=== PATIENT | male | born 1955 | race Caucasian/White ===

== ENCOUNTER 2024-02-27 12:01 | Inpatient (IN) ==
--- NOTE | 2024-02-27 12:22 | Emergency Department Note ---
Impression & Plan Acute left lumbar radiculopathy ED Provider Note NAME: JAYLYN BUENO AGE: 68 SEX: M : 1955 ARRIVES VIA: Walk-In INFORMANT: Patient, ED PROVIDER(S): Sravan Leach DO CHIEF COMPLAINT: Back pain HPI: The patient is a 68-year-old male who presented to the emergency department for an evaluation of back pain. The patient has been experiencing back pain for many years. He recently had another problem with his lower back over the course of the last several days. He was seen in our facility 2 days ago for similar complaints. At that time he was treated with pain medication. He had multiple radiographic studies but ultimately was able to be discharged to home. The patient returns today because of worsening symptoms. He is scheduled to follow- up with orthopedic spine but not for several days. He was scheduled to see his family doctor today but he was in too much pain so he came to the emergency department. He denies having any trauma or fever. ROS: See above HPI for pertinent positives & negatives. A total of 10 systems reviewed and were otherwise negative. PAST MEDICAL HISTORY: See Below PAST SURGICAL HISTORY: See Below FAMILY HISTORY: See Below SOCIAL HISTORY: See Below HOME MEDICATIONS: See Below ALLERGIES: See Below VITALS: See Below PHYSICAL EXAMINATION: GENERAL: The patient is awake and alert. The patient is somewhat anxious appearing. He appears uncomfortable. EYES: The conjunctivae are clear. The pupils are round and reactive. EARS, NOSE, MOUTH AND THROAT: The nose is without any evidence of any deformity. NECK: The neck is nontender and supple. RESPIRATORY: Normal respiratory effort is noted there is no evidence of wheezing rhonchi or rales CARDIOVASCULAR: Regular rate and rhythm noted there no murmurs rubs or gallops normal S1 normal S2. GASTROINTESTINAL: The abdomen is soft. Abdomen is nontender. BACK: There is no midline tenderness appreciated. There was tenderness over the left sciatic notch. MUSCULOSKELETAL/EXTREMITIES: There is no evidence of gross deformity full range of motion is noted in the hips and shoulders. SKIN: There is no obvious evidence of any rash. There are no petechiae, pallor or cyanosis noted. NEUROLOGIC: Patient is awake alert and oriented x3 strength is symmetric patellar reflexes are 2+ bilaterally. Achilles tendon reflexes were 1+ bilaterally. Great toe raise was symmetric. MEDICAL DECISION MAKING: The patient is a 68-year-old male who presented to the emergency department for an evaluation of the left leg numbness and back pain. The patient appears to have lumbar radiculopathy. He was diagnosed with lumbar radiculopathy recently in our facility. He was scheduled for a follow-up with orthopedic spine but pain became worse and he came to the emergency department today. He was treated with pain medication in the emergency department. He was feeling much better but on subsequent reevaluation and continued to have worsening pain that I felt warranted an MRI especially given his exam and comorbidities. Ultimately he was found to have some degree of impingement. This could explain the patient's pain. I discussed his condition with the on-call [facility] hospitalist. They have agreed to evaluate the patient in the emergency department for further management and disposition. Triage Nursing notes reviewed. Prior medical records reviewed Vital Signs: reviewed and remarkable for no significant abnormalities Differential diagnosis: Musculoskeletal, disc herniation, fracture, metastatic disease, cord compression, discitis, sciatica, cauda equina, infection, aortic disease, renal colic, gastrointestinal, as well as other pathologies. ER treatment provided: See below Diagnostics interpreted by me: ECG: none Cardiac Monitoring: An order was placed for continuous cardiac monitoring. The monitor shows a rate of 103 bpm with sinus rhythm. Laboratory studies: As stated above and show below. Imaging studies: See below. Radiographic imaging was reviewed by myself Consultation(s): I discussed this case with Dr. Ellison who is on-call for the [facility]ist group. Past Med/Surg History Problem List Hypertension Aneurysm of abdominal aorta (under annual surveillance by PCP) Acute left lumbar radiculopathy (Acute) Groin lump Erectile dysfunction Encounter for pre-operative examination Retention of urine Gross hematuria Elevated PSA Diabetes mellitus NIDDM BPH with obstruction/lower urinary tract symptoms Recurrent left inguinal hernia Smoker GERD (gastroesophageal reflux disease) S/P left inguinal hernia repair (09/20/20) Left Open Recurrent Inguinal Hernia Repair With Mesh Dr. Moy 09-20-2020 Medical History Diabetes mellitus, type 2 BPH (benign prostatic hyperplasia) Hypertension Hyperlipidemia Aneurysm of abdominal aorta (under annual surveillance by PCP) Surgical History History of prostate surgery [facility] TURP (08/27/18): LMA#5 at [facility] H/O colonoscopy Hx of bilateral cataract extraction History of bilateral inguinal hernia repair ~2012 ([facility]) Family History Father Prostate cancer Hypertension Brother Prostate cancer Mother Hypertension Diabetes Sister Diabetes Other No family history of adverse response to anesthesia Social History Smoking Status: Never smoker packs per day: 1.5; Cigarettes Per Day: quit 3 YEARS AGO; Second Hand Exposure: No; Do You Dip or Chew Tobacco: No; Hx Alcohol Use: Yes Alcohol type: beer Hx Substance Use: No Preferred Language: Georgian Communication Ability: Effective 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: No Beliefs That Will Affect Care: None marital status: Current Living Situation: Spouse current occupational status: employed 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 Feels Safe at Home: Yes Assistive Devices: Denture - Upper and Denture - Lower Allergies Allergies Allergy/AdvReac Type Severity Reaction Status Date / Time No Known Allergies Allergy Verified 04/22/23 15:17 Home Meds Home Medications Medication Instructions Recorded Confirmed atorvastatin 40 mg tablet 40 mg PO QAM 08/21/18 02/27/24 lisinopril 5 mg tablet 10 mg PO QAM 08/21/18 02/27/24 finasteride 5 mg tablet 5 mg PO QAM 09/07/20 02/27/24 empagliflozin 25 mg tablet 25 mg PO UD 07/19/22 02/27/24 (Jardiance) metformin 500 mg tablet,extended 1,000 mg PO BID 02/27/24 02/27/24 release 24 hr pantoprazole 20 mg tablet,delayed 20 mg PO BID 02/27/24 02/27/24 release semaglutide 7 mg tablet (Rybelsus) 7 mg PO DAILY 02/27/24 02/27/24 Previous Rx's Medication Instructions Recorded sildenafil 100 mg tablet 100 mg PO DAILY PRN sexual 02/18/24 activity #10 tabs prednisone 20 mg tablet 20 mg PO DAILY 4 days #4 tabs 02/25/24 Results & Data (ED) Vital Signs Vital Signs - 24 hr 02/27/24 12:05 02/27/24 12:17 02/27/24 12:30 Temperature 37 C Temperature Source Oral Pulse Rate 79 71 Pulse Rate [Apical] 74 Pulse Rate from SpO2 Sensor Pulse Rhythm Regular Pulse Rhythm [Apical] Regular Pulse Strength Normal Pulse Strength [Apical] Normal Respiratory Rate 18 22 Respiratory Effort / Characteristics Non-Labored Spontaneous Non-Labored Spontaneous Respiratory Depth Normal Normal Respiratory Pattern Regular Regular Blood Pressure 177/93 H Blood Pressure [Right Arm] 144/87 H Blood Pressure Mean 121 Blood Pressure Mean [Right Arm] 106 Blood Pressure Position Sitting Blood Pressure Position [Right Arm] Lying Pulse Oximetry 98 95 Oxygen Delivery Method Room Air Room Air Sepsis Recent Fever Within 48 Hours No Sepsis New/Unexplained Change in Mental Status No Sepsis Action Taken by Nursing No Action Required 02/27/24 12:30 02/27/24 12:36 02/27/24 13:12 Temperature Temperature Source Pulse Rate 77 Pulse Rate [Apical] Pulse Rate from SpO2 Sensor 77 Pulse Rhythm Pulse Rhythm [Apical] Pulse Strength Pulse Strength [Apical] Respiratory Rate 20 Respiratory Effort / Characteristics Respiratory Depth Respiratory Pattern Blood Pressure 144/87 H 141/72 H Blood Pressure [Right Arm] Blood Pressure Mean 106 104 Blood Pressure Mean [Right Arm] Blood Pressure Position Blood Pressure Position [Right Arm] Pulse Oximetry 95 94 Oxygen Delivery Method Room Air Room Air Sepsis Recent Fever Within 48 Hours Sepsis New/Unexplained Change in Mental Status Sepsis Action Taken by Nursing 02/27/24 13:21 02/27/24 13:30 02/27/24 13:30 Temperature Temperature Source Pulse Rate 74 74 Pulse Rate [Apical] Pulse Rate from SpO2 Sensor 71 74 Pulse Rhythm Pulse Rhythm [Apical] Pulse Strength Pulse Strength [Apical] Respiratory Rate 17 16 Respiratory Effort / Characteristics Respiratory Depth Respiratory Pattern Blood Pressure 135/77 Blood Pressure [Right Arm] Blood Pressure Mean 98 Blood Pressure Mean [Right Arm] Blood Pressure Position Blood Pressure Position [Right Arm] Pulse Oximetry 95 90 Oxygen Delivery Method Sepsis Recent Fever Within 48 Hours Sepsis New/Unexplained Change in Mental Status Sepsis Action Taken by Nursing 02/27/24 13:42 02/27/24 14:57 02/27/24 14:57 Temperature Temperature Source Pulse Rate 69 Pulse Rate [Apical] Pulse Rate from SpO2 Sensor 69 Pulse Rhythm Pulse Rhythm [Apical] Pulse Strength Pulse Strength [Apical] Respiratory Rate 14 Respiratory Effort / Characteristics Respiratory Depth Respiratory Pattern Blood Pressure 152/104 H 152/104 H Blood Pressure [Right Arm] Blood Pressure Mean 110 110 Blood Pressure Mean [Right Arm] Blood Pressure Position Blood Pressure Position [Right Arm] Pulse Oximetry 93 Oxygen Delivery Method Sepsis Recent Fever Within 48 Hours Sepsis New/Unexplained Change in Mental Status Sepsis Action Taken by Nursing 02/27/24 14:57 02/27/24 14:59 02/27/24 15:00 Temperature Temperature Source Pulse Rate 68 Pulse Rate [Apical] 93 H Pulse Rate from SpO2 Sensor 69 Pulse Rhythm Pulse Rhythm [Apical] Regular Pulse Strength Pulse Strength [Apical] Respiratory Rate 16 18 Respiratory Effort / Characteristics Non-Labored Respiratory Depth Normal Respiratory Pattern Blood Pressure 147/82 H Blood Pressure [Right Arm] 152/104 H Blood Pressure Mean 106 Blood Pressure Mean [Right Arm] 120 Blood Pressure Position Blood Pressure Position [Right Arm] Pulse Oximetry 96 93 Oxygen Delivery Method Room Air Sepsis Recent Fever Within 48 Hours Sepsis New/Unexplained Change in Mental Status Sepsis Action Taken by Nursing 02/27/24 15:03 02/27/24 15:21 02/27/24 15:30 Temperature Temperature Source Pulse Rate 90 70 Pulse Rate [Apical] Pulse Rate from SpO2 Sensor 80 70 Pulse Rhythm Pulse Rhythm [Apical] Pulse Strength Pulse Strength [Apical] Respiratory Rate 19 14 Respiratory Effort / Characteristics Respiratory Depth Respiratory Pattern Blood Pressure 138/77 Blood Pressure [Right Arm] Blood Pressure Mean 99 Blood Pressure Mean [Right Arm] Blood Pressure Position Blood Pressure Position [Right Arm] Pulse Oximetry 94 94 Oxygen Delivery Method Sepsis Recent Fever Within 48 Hours Sepsis New/Unexplained Change in Mental Status Sepsis Action Taken by Nursing 02/27/24 15:30 02/27/24 16:00 02/27/24 16:00 Temperature Temperature Source Pulse Rate 70 Pulse Rate [Apical] Pulse Rate from SpO2 Sensor 70 Pulse Rhythm Pulse Rhythm [Apical] Pulse Strength Pulse Strength [Apical] Respiratory Rate 12 Respiratory Effort / Characteristics Respiratory Depth Respiratory Pattern Blood Pressure 134/80 134/80 Blood Pressure [Right Arm] Blood Pressure Mean 110 110 Blood Pressure Mean [Right Arm] Blood Pressure Position Blood Pressure Position [Right Arm] Pulse Oximetry 95 Oxygen Delivery Method Sepsis Recent Fever Within 48 Hours Sepsis New/Unexplained Change in Mental Status Sepsis Action Taken by Nursing 02/27/24 16:00 02/27/24 16:12 02/27/24 16:18 Temperature Temperature Source Pulse Rate 69 76 84 Pulse Rate [Apical] Pulse Rate from SpO2 Sensor 69 76 Pulse Rhythm Pulse Rhythm [Apical] Pulse Strength Pulse Strength [Apical] Respiratory Rate 16 15 Respiratory Effort / Characteristics Respiratory Depth Respiratory Pattern Blood Pressure Blood Pressure [Right Arm] Blood Pressure Mean Blood Pressure Mean [Right Arm] Blood Pressure Position Blood Pressure Position [Right Arm] Pulse Oximetry 95 95 Oxygen Delivery Method Sepsis Recent Fever Within 48 Hours Sepsis New/Unexplained Change in Mental Status Sepsis Action Taken by Nursing 02/27/24 16:24 02/27/24 16:30 02/27/24 16:30 Temperature Temperature Source Pulse Rate 69 Pulse Rate [Apical] 68 Pulse Rate from SpO2 Sensor 70 Pulse Rhythm Pulse Rhythm [Apical] Regular Pulse Strength Pulse Strength [Apical] Normal Respiratory Rate 15 14 Respiratory Effort / Characteristics Non-Labored Spontaneous Respiratory Depth Normal Respiratory Pattern Regular Blood Pressure 132/80 Blood Pressure [Right Arm] 132/80 Blood Pressure Mean 104 Blood Pressure Mean [Right Arm] 97 Blood Pressure Position Blood Pressure Position [Right Arm] Sitting Pulse Oximetry 96 95 Oxygen Delivery Method Room Air Sepsis Recent Fever Within 48 Hours Sepsis New/Unexplained Change in Mental Status Sepsis Action Taken by Nursing 02/27/24 16:30 02/27/24 16:30 02/27/24 16:42 Temperature Temperature Source Pulse Rate 69 85 Pulse Rate [Apical] Pulse Rate from SpO2 Sensor 70 81 Pulse Rhythm Pulse Rhythm [Apical] Pulse Strength Pulse Strength [Apical] Respiratory Rate 11 L 23 Respiratory Effort / Characteristics Respiratory Depth Respiratory Pattern Blood Pressure 132/80 Blood Pressure [Right Arm] Blood Pressure Mean 104 Blood Pressure Mean [Right Arm] Blood Pressure Position Blood Pressure Position [Right Arm] Pulse Oximetry 95 98 Oxygen Delivery Method Sepsis Recent Fever Within 48 Hours Sepsis New/Unexplained Change in Mental Status Sepsis Action Taken by Nursing 02/27/24 16:57 02/27/24 17:00 02/27/24 17:06 Temperature Temperature Source Pulse Rate 73 Pulse Rate [Apical] Pulse Rate from SpO2 Sensor 73 80 Pulse Rhythm Pulse Rhythm [Apical] Pulse Strength Pulse Strength [Apical] Respiratory Rate 14 Respiratory Effort / Characteristics Respiratory Depth Respiratory Pattern Blood Pressure 126/82 Blood Pressure [Right Arm] Blood Pressure Mean 87 Blood Pressure Mean [Right Arm] Blood Pressure Position Blood Pressure Position [Right Arm] Pulse Oximetry 95 95 Oxygen Delivery Method Sepsis Recent Fever Within 48 Hours Sepsis New/Unexplained Change in Mental Status Sepsis Action Taken by Nursing 02/27/24 17:30 02/27/24 17:42 02/27/24 19:00 Temperature Temperature Source Pulse Rate 75 Pulse Rate [Apical] 103 H Pulse Rate from SpO2 Sensor 75 Pulse Rhythm Pulse Rhythm [Apical] Pulse Strength Pulse Strength [Apical] Respiratory Rate 17 18 Respiratory Effort / Characteristics Respiratory Depth Respiratory Pattern Blood Pressure 141/74 H Blood Pressure [Right Arm] 128/72 Blood Pressure Mean 91 Blood Pressure Mean [Right Arm] 90 Blood Pressure Position Blood Pressure Position [Right Arm] Pulse Oximetry 94 95 Oxygen Delivery Method Room Air Sepsis Recent Fever Within 48 Hours Sepsis New/Unexplained Change in Mental Status Sepsis Action Taken by [facility] Medications Current Medication List: was personally reviewed by me Laboratory Data Attestation: I reviewed the patient's lab results. 02/27/24 12:22 02/27/24 12:22 Lab Results 02/27/24 02/27/24 Range/Units 12:22 14:47 WBC 5.53 (4.8-10.8) K/ul RBC 4.60 L (4.70-6.10) M/uL Hgb 11.6 L (14.0-18.0) g/dl Hct 37.6 L (42.0-52.0) % MCV 81.7 (80.0-100.0) fL MCH 25.2 (25.0-34.0) pg MCHC 30.9 L (32.0-36.0) g/dL RDW Std Deviation 49.1 H (36.4-46.3) fL RDW Coeff of Jasmin 16.5 H (11.5-14.5) % Plt Count 304 (130-400) K/uL MPV 9.6 (9.4-12.4) fL Immature Gran % (Auto) 0.2 % Neut % (Auto) 63.0 % Lymph % (Auto) 28.4 % Bates % (Auto) 6.1 % Eos % (Auto) 1.6 % Baso % (Auto) 0.7 % Neut # (Auto) 3.48 (1.40-6.50) K/uL Lymph # (Auto) 1.57 (1.20-3.40) K/uL Bates # (Auto) 0.34 (0.11-0.59) K/uL Eos # (Auto) 0.09 (0.00-0.50) K/uL Baso # (Auto) 0.04 (0.00-0.20) K/uL Immature Gran # (Auto) 0.01 (0.01-0.20) K/uL Sodium 137 (136-145) mmol/L Potassium 3.8 (3.5-5.1) mmol/L Chloride 103 (98-107) mmol/L Carbon Dioxide 27 (21-32) mmol/L Anion Gap 7 (3-11) BUN 13 (6-23) mg/dl Creatinine 1.02 (0.6-1.4) mg/dl Est Cr Clr Drug Dosing 81.7 ml/min eGFR 80.55 BUN/Creatinine Ratio 12.7 (10-20) Glucose 148 H (70-99(Fasting)) mg/dl Calcium 9.3 (8.6-10.3) mg/dl Total Bilirubin 0.4 (0.2-1.0) mg/dl AST 15 (13-39) U/L ALT 13 (7-52) U/L Alkaline Phosphatase 59 (34-104) U/L Total Protein 6.6 (6.0-8.3) gm/dl Albumin 4.3 (3.4-5.0) gm/dl Globulin 2.3 L (2.5-4.0) gm/dl Albumin/Globulin Ratio 1.9 (0.9-2) Lipase 28 (11-82) U/L Urine Color Yellow Urine Appearance Clear (Clear) Urine pH 5.5 (4.5-7.5) Ur Specific [place] 1.008 (1.000-1.030) Urine Protein Negative (Negative) Urine Glucose (UA) 2+ H (Negative) Urine Ketones Negative (Negative) Urine Blood Negative (Negative) Urine Nitrite Negative (Negative) Urine Bilirubin Negative (Negative) Urine Urobilinogen Negative (Negative) Ur Leukocyte Esterase Negative (Negative) Administered Medications Morphine Sulfate (Morphine Sulfate 4 Mg/Ml 1 Ml Carp\Vial) 4 mg IV Q15M PRN PRN Reason: Pain Stop: 03/12/24 12:14 Last Admin: 02/27/24 12:24 Dose: 4 mg Documented By: G Discontinued Medications Dexamethasone Sodium Phosphate (DexamethasonePf 10 Mg/Ml Vial) 10 mg IV NOW ONE Stop: 02/27/24 12:16 Last Admin: 02/27/24 12:25 Dose: 10 mg Documented By: Ondansetron HCl (Ondansetron Inj 2 Mg/Ml 2 Ml Vial) 4 mg IV NOW STA Stop: 02/27/24 12:16 Last Admin: 02/27/24 12:25 Dose: 4 mg Documented By: Imaging Data Attestation: I personally reviewed and interpreted this imaging study as follows: My Impression: Lumbar fine MRI was obtained in the emergency department. My interpretation is no obvious step-off or fracture, final report below. Radiologist's Impression: Lumbar Spine MRI 02/27/24 12:45 MR lumbar spine wo con CLINICAL HISTORY: 68 years-old Male with left sided radicular. Chronic low back pain with left lower extremity radicular symptoms COMPARISON: CT 02/25/2024 TECHNIQUE: Multiplanar, multi sequence MRI of the lumbar spine was performed without intravenous contrast. FINDINGS: Distended urinary bladder is partially imaged. Conus medullaris terminates at T12-L1. No acute fracture, subluxation or bone marrow edema. No epidural or paraspinal fluid collections. There is no dilation of the infrarenal abdominal aorta redemonstrated measuring approximately 4.1 cm. Mild multilevel spondylitic spurring with [id number] facet arthrosis. T12-L1: No central canal or neural foraminal stenosis. L1-L2: No central canal or neural foraminal stenosis. L2-L3: No central canal or neural foraminal stenosis. L3-L4: Mild intervertebral disc space narrowing with disc desiccation and tiny posterior annular disc bulge. Moderate facet arthrosis. Mild bilateral foraminal narrowing, left greater than right. Central canal is patent. L4-L5: Mild intervertebral disc space narrowing with tiny posterior disc bulge. Ligamentum flavum thickening with moderate facet arthrosis and trace facet effusions. Left foraminal/far lateral annular fissure. Central canal is patent. [id number] left foraminal stenosis. Mild right foraminal narrowing. L5-S1: Moderate intervertebral disc space narrowing. Spondylotic spurring with circumferential annular disc bulge/disc osteophyte complex. There is abutment with slight posterior displacement of the left S1 nerve root which is slightly enlarged compared to the right. Moderate narrowing of the left greater than right lateral recesses. Ligamentum flavum thickening with moderate facet arthrosis. Central canal is patent. Mild right with [id number] left foraminal narrowing. IMPRESSION: 1. Discogenic degeneration with facet arthrosis as above, most pronounced at L4- L5 and L5-S1. 2. No acute fracture or bone marrow edema. 3. No significant central canal stenosis. 4. Fusiform aneurysmal dilation of the infrarenal abdominal aorta redemonstrated measuring up to 4.1 cm. ACT 112: Negative or not required by law. The above report was generated using voice recognition software. It may contain grammatical, syntax or spelling errors. Electronically signed by: Mark Mcgregor M.D. 02/27/2024 3:00 PM Discharge Plan Visit Data Chief Complaint: Hip Pain Stated Complaint: LT HIP AND LEG PAIN AND NUMBNESS ED Provider: Sravan Leach Discharge Problem: Acute left lumbar radiculopathy Patient Disposition: Being Evaluated by Hospitalist Forms Stand Alone Forms: [facility] Prescriptions Prescriptions: No Action sildenafil 100 mg tablet 100 mg PO DAILY PRN (Reason: sexual activity) Qty: 10 6RF Rx Instructions: Administer 1 hour prior to activity on an empty stomach atorvastatin 40 mg Tablet 40 mg PO QAM lisinopril 5 mg Tablet 10 mg PO QAM finasteride 5 mg tablet 5 mg PO QAM Jardiance 25 mg Tablet 25 mg PO UD Rx Instructions: 25 mg po qam. last filled in january for 30 day supply. Per pharmacist, they think rybelsus replaced it but not sure. prednisone 20 mg tablet 20 mg PO DAILY 4 Days Qty: 4 0RF pantoprazole 20 mg tablet,delayed release (DR/EC) 20 mg PO BID Rybelsus 7 mg tablet 7 mg PO DAILY metformin 500 mg tablet extended release 24 hr 1,000 mg PO BID Referrals Referrals: Rabia Mcneil DO [Primary Care Provider] -
[2024-02-27] MEDS: MoRPHine SULFATE 4 MG/ML 1 ML CARP\\VIAL IV PRN (12:24)
[2024-02-27] MEDS: ONDANSETRON INJ 2 MG/ML 2 ML VIAL IV STA (12:25)
[2024-02-27] MEDS: dexAMETHasone**PF** 10 MG/ML VIAL IV ONE (12:25)
[2024-02-27 12:55] LABS: Basophils # (auto) 0.04 K/uL (0.00-0.20); Basophils % (auto) 0.7 %; Eosinophils # (auto) 0.09 K/uL (0.00-0.50); Eosinophils % (auto) 1.6 %; Hematocrit (blood only) 37.6 % (42.0-52.0); Hemoglobin 11.6 g/dl (14.0-18.0); Immature Granulocytes # (auto) 0.01 K/uL (0.01-0.20); Immature Granulocytes % (auto) 0.2 %; Lymphocytes # (auto) 1.57 K/uL (1.20-3.40); Lymphocytes % (auto) 28.4 %; Mean Corpuscular Hemoglobin 25.2 pg (25.0-34.0); Mean Corpuscular Hgb Conc 30.9 g/dL (32.0-36.0); Mean Corpuscular Volume 81.7 fL (80.0-100.0); Mean Platelet Volume 9.6 fL (9.4-12.4); Monocytes # (auto) 0.34 K/uL (0.11-0.59); Monocytes % (auto) 6.1 %; Neutrophils # (auto) 3.48 K/uL (1.40-6.50); Platelet Count 304 K/uL (130-400); RDW Coefficient of Variation 16.5 % (11.5-14.5); RDW Standard Deviation 49.1 fL (36.4-46.3); White Blood Count 5.53 K/ul (4.8-10.8)
[2024-02-27 13:08] LABS: Albumin Globulin Ratio 1.9 (0.9-2); Albumin Level 4.3 gm/dl (3.4-5.0); BUN Creatinine Ratio 12.7 (10-20); Bilirubin,Total 0.4 mg/dl (0.2-1.0); Calcium 9.3 mg/dl (8.6-10.3); Creatinine Clr Calc Pharmacy 81.7 ml/min; Globulin 2.3 gm/dl (2.5-4.0); Potassium 3.8 mmol/L (3.5-5.1); Total Protein 6.6 gm/dl (6.0-8.3)
[2024-02-27 15:12] LABS: Appearance Urine Clear (Clear); Bilirubin Urine Negative (Negative); Blood Urine Negative (Negative); Color Urine Yellow; Glucose Urine UA 2+ (Negative); Ketones Urine Negative (Negative); Leukocyte Esterase Urine Negative (Negative); Nitrite Urine Negative (Negative); Protein Urine Negative (Negative); Specific Gravity Urine 1.008 (1.000-1.030); Urobilinogen Urine Negative (Negative); pH Urine 5.5 (4.5-7.5)
--- NOTE | 2024-02-27 15:31 | Magnetic Resonance Report ---
MR lumbar spine wo con CLINICAL HISTORY: 68 years-old Male with left sided radicular. Chronic low back pain with left lower extremity radicular symptoms COMPARISON: CT 02/25/2024 TECHNIQUE: Multiplanar, multi sequence MRI of the lumbar spine was performed without intravenous cont rast. FINDINGS: Distended urinary bladder is partially imaged. Conus medullaris terminates at T12-L1. No ac [place] fracture, subluxation or bone marrow edema. No epidural or paraspinal fluid collections. There is no dilation of the infrarenal abdominal aorta redemonstrated measuring approximately 4.1 cm. Mild mu ltilevel spondylitic spurring with wpcr-[id number]-iksxoezt facet arthrosis. T12-L1: No central canal or neural foraminal stenosis. L1-L2: No central canal or neural foraminal stenosis. L2-L3: No central canal or neural foraminal stenosis. L3-L4: Mild intervertebral disc space narrowing with disc desiccation and tiny posterior annular dis c bulge. Moderate facet arthrosis. Mild bilateral foraminal narrowing, left greater than right. Central canal is patent. L4-L5: Mild intervertebral disc space narrowing with tiny posterior disc bulge. Ligamentum flavum th ickening with moderate facet arthrosis and trace facet effusions. Left foraminal/far lateral annular fissure. Central canal is patent. [id number] left foraminal stenosis. Mild right foraminal narr owing. L5-S1: Moderate intervertebral disc space narrowing. Spondylotic spurring with circumferential annul ar disc bulge/disc osteophyte complex. There is abutment with slight posterior displacement of the le ft S1 nerve root which is slightly enlarged compared to the right. Moderate narrowing of the left gre ater than right lateral recesses. Ligamentum flavum thickening with moderate facet arthrosis. Central canal is patent. Mild right with newx-ga-ljbrsgyy left foraminal narrowing. IMPRESSION: 1. Discogenic degeneration with facet arthrosis as above, most pronounced at L4-L5 and L5-S1. 2. No acute fracture or bone marrow edema. 3. No significant central canal stenosis. 4. Fusiform aneurysmal dilation of the infrarenal abdominal aorta redemonstrated measuring up to 4.1 cm. ACT 112: Negative or not required by law. The above report was generated using voice recognition software. It may contain grammatical, syntax o r spelling errors. Electronically signed by: Mark Mcgregor M.D. 02/27/2024 3:00 PM
--- NOTE | 2024-02-27 16:22 | History & Physical Report ---
Date of Service February 27, 2024 Assessment & Plan (1) Acute left lumbar radiculopathy: Plan: Ike is a 68-year-old male with PMH of GERD, BPH, diabetes mellitus, urinary retention, and lumbar radiculopathy. He presented on 02/26 for left hip pain with radiation down the leg. Patient denies back pain or saddle anesthesia on admission. No changes in urinary or bowel habits or urinary incontinence. Patient originally presented to the ED 2 days ago on 02/24, and felt better after receiving steroids and tried to go home. Despite taking prednisone 20 mg p.o. BID after ED visit, his symptoms have persisted. No leukocytosis; afebrile Lumbar spine MRI on arrival revealed discogenic degeneration most prominent at L4-L5, and L5-S1 ? Impingement on left side Decadron 10 mg IV x 1 in the ED He does report this helped significantly in the ED Pain control with acetaminophen and oxycodone p.o. as needed Instead of starting on prednisone on the morning of 02/27, will opt to continue Decadron 6 mg IV QAM for now No improvement with prednisone 20 mg p.o. outpatient on 02/24 Will defer orthospine consult at this time as imaging reveals that it is likely nonoperative PT/OT evaluations appreciated Fall precautions (2) Diabetes mellitus: Plan: Last A1c at 7.6% on 09/11/2020 Loose SSI for now Lantus to be added pending a.m. A1c T2DM diet BSG ACHS Adjust regimen as needed Pharmacy glycemic management consult appreciated in the setting of high-dose steroid use AM A1c (3) Aneurysm of abdominal aorta: Plan: Lumbar spine MRI redemonstrated infrarenal abdominal aorta at approximately 4.1 cm Noted on imaging as far back as 2019 Continue regular surveillance (4) Hypertension: Plan: Continue lisinopril Plan Disposition: Admit to [facility] DNR/DNI T2DM diet VTE PPx: Lovenox 40 mg SQ q24h History of Present Illness Chief Complaint: Right hip pain Primary Care Provider: Rabia Mcneil DO Ike is a 68-year-old male with PMH of GERD, BPH, diabetes mellitus, urinary retention, and lumbar radiculopathy. He presented on 02/26 for left hip pain wi th radiation down the leg. Patient denies back pain or saddle anesthesia on admission. No changes in urinary or bowel habits or urinary incontinence. Patient originally presented to the ED 2 days ago on 02/24, and felt better after receiving steroids and tried to go home. Despite taking prednisone 20 mg p.o. BID after ED visit, his symptoms have persisted. Originally, he developed left hip pain around 6 to 7 days ago. This was potentially exacerbated when he took down his Evens lights 10 days ago. Patient did not take his regular morning medicine today. Only recent change was that he was taken off Jardiance at the beginning of February, started on Rybelsus. He describes his left hip pain as a "throbbing" pain that shoots down his leg. His left calf is so sore from the throbbing that he feels like there is a constant "charley horse". He rates the pain 12/10 at its worst, and 6/10 at present after receiving pain medicine in the ED. No prior history of injuries to his left hip or leg. No hardware in the left leg. No history of blood clots in the left leg. Patient is a former tobacco cigarette smoker but quit 5 years ago; smoked for 50 years; 3 PPD. He also reports that he drinks 2-3 beers per day, but has not had any alcohol in the past 3 days. No history of alcohol withdrawal. The pain is not worse when he bears weight on it. Patient is hypertensive at 152/104 at time of admission; vitals otherwise stable. ED course: Decadron 10 mg IV Zofran 4 mg IV Morphine 4 mg IV ROS: Patient endorses pain in left hip/calf/foot, numbness/tingling in left calf and foot, and swelling in calf. Patient denies fever, chills, night-sweats, headache, chest pain, SOB, abdominal pain, N/V/D, urinary incontinence, changes in urinary/bowel habits, blood in the urine or stool, lower back pain, or saddle anesthesia. Allergies Allergy/AdvReac Type Severity Reaction Status Date / Time No Known Allergies Allergy Verified 04/22/23 15:17 Home Medications Medication Instructions Recorded Confirmed Type atorvastatin 40 mg tablet 40 mg PO QAM 08/21/18 02/27/24 History lisinopril 5 mg tablet 10 mg PO QAM 08/21/18 02/27/24 History finasteride 5 mg tablet 5 mg PO QAM 09/07/20 02/27/24 History empagliflozin 25 mg tablet 25 mg PO UD 07/19/22 02/27/24 History (Jardiance) sildenafil 100 mg tablet 100 mg PO DAILY PRN sexual 02/18/24 02/27/24 Rx activity #10 tabs prednisone 20 mg tablet 20 mg PO DAILY 4 days #4 tabs 02/25/24 02/27/24 Rx metformin 500 mg tablet,extended 1,000 mg PO BID 02/27/24 02/27/24 History release 24 hr pantoprazole 20 mg tablet,delayed 20 mg PO BID 02/27/24 02/27/24 History release semaglutide 7 mg tablet (Rybelsus) 7 mg PO DAILY 02/27/24 02/27/24 History Past Med/Surg History Problem List Hypertension Aneurysm of abdominal aorta (under annual surveillance by PCP) Acute left lumbar radiculopathy (Acute) Groin lump Erectile dysfunction Encounter for pre-operative examination Retention of urine Gross hematuria Elevated PSA Diabetes mellitus NIDDM BPH with obstruction/lower urinary tract symptoms Recurrent left inguinal hernia Smoker GERD (gastroesophageal reflux disease) S/P left inguinal hernia repair (09/20/20) Left Open Recurrent Inguinal Hernia Repair With Mesh Dr. Moy 09-20-2020 Medical History Diabetes mellitus, type 2 BPH (benign prostatic hyperplasia) Hypertension Hyperlipidemia Aneurysm of abdominal aorta (under annual surveillance by PCP) Surgical History History of prostate surgery [facility] TURP (08/27/18): LMA#5 at [facility] H/O colonoscopy Hx of bilateral cataract extraction History of bilateral inguinal hernia repair ~2012 ([facility] [place]) Family History Father Prostate cancer Hypertension Brother Prostate cancer Mother Hypertension Diabetes Sister Diabetes Other No family history of adverse response to anesthesia Social History Smoking Status: Never smoker packs per day: 1.5; Cigarettes Per Day: quit 3 YEARS AGO; Second Hand Exposure: No; Do You Dip or Chew Tobacco: No; Hx Alcohol Use: Yes Alcohol type: beer Hx Substance Use: No Preferred Language: Syriac Communication Ability: Effective Marketing Clerk Required: No Beliefs That Will Affect Care: None marital status: Current Living Situation: Spouse current occupational status: employed 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 Feels Safe at Home: Yes Assistive Devices: Denture - Upper and Denture - Lower Review of Systems Review of Systems: See HPI above Physical Exam Physical Exam: General: Mild distress secondary to left hip pain; pleasant affect; non-toxic appearing; well-nourished; cooperative; SpO2 95% on RA HEENT: normocephalic, atraumatic; no scleral icterus; PERRLA; vision and hearing grossly intact Neck: supple; no lymphadenopathy; trachea midline Skin: warm, dry without signs of tenting; no cyanosis; no rashes, bruising, lesions, or erythema noted CV: chest wall NTP; RRR; S1/S2 normal; no murmurs/rubs/gallops; pulses intact and symmetric at radial, DP, and PT Lungs: no acute respiratory distress; symmetrical chest wall expansion; clear breath sounds across all lung mariee w/o adventitious sounds; no wheezing ABD: Soft, NTP; BS present; no rebound/guarding; no distention MSK: no tics or fasciculations LEs: Patient demonstrates ability wiggle toes, plantarflex, and dorsiflex bilaterally; positive left-sided straight leg raise; left hip is mildly TTP; no rashes or bruising appreciated on the left hip or leg; the left calf is only slightly more swollen than the right and is not erythematous; patient's feet are neurovascularly intact assessed at DP and PT; ? Patient's pulse may be slightly weaker in the left DP when compared to the right; extremity is not cold to touch Neuro: A&Ox3; normal mood and affect; fluent speech; no focal deficits; sensation intact and symmetric in lower EXTR bilaterally assessed via light touch Results & Data Results & Data Vital Signs (Past 12 Hours) Vital Signs Temp Pulse Pulse Resp BP BP Pulse Ox 02/27/24 14:59 93 H 18 152/104 H 93 02/27/24 12:36 77 20 144/87 H 94 02/27/24 12:30 95 02/27/24 12:30 74 22 144/87 H 95 02/27/24 12:17 71 02/27/24 12:05 37 C 79 18 177/93 H 98 O2 Del Method 02/27/24 14:59 Room Air 02/27/24 12:36 Room Air 02/27/24 12:30 Room Air 02/27/24 12:30 Room Air 02/27/24 12:17 02/27/24 12:05 Room Air Laboratory Results Abnormal lab results 02/27/24 02/27/24 Range/Units 12:22 14:47 RBC 4.60 L (4.70-6.10) M/uL Hgb 11.6 L (14.0-18.0) g/dl Hct 37.6 L (42.0-52.0) % MCHC 30.9 L (32.0-36.0) g/dL RDW Std Deviation 49.1 H (36.4-46.3) fL RDW Coeff of Jasmin 16.5 H (11.5-14.5) % Glucose 148 H (70-99(Fasting)) mg/dl Globulin 2.3 L (2.5-4.0) gm/dl Urine Glucose (UA) 2+ H (Negative) Diagnostic Findings Lumbar Spine MRI 02/27/24 12:45 MR lumbar spine wo con CLINICAL HISTORY: 68 years-old Male with left sided radicular. Chronic low back pain with left lower extremity radicular symptoms COMPARISON: CT 02/25/2024 TECHNIQUE: Multiplanar, multi sequence MRI of the lumbar spine was performed without intravenous contrast. FINDINGS: Distended urinary bladder is partially imaged. Conus medullaris terminates at T12-L1. No acute fracture, subluxation or bone marrow edema. No epidural or paraspinal fluid collections. There is no dilation of the infrarenal abdominal aorta redemonstrated measuring approximately 4.1 cm. Mild multilevel spondylitic spurring with [id number] facet arthrosis. T12-L1: No central canal or neural foraminal stenosis. L1-L2: No central canal or neural foraminal stenosis. L2-L3: No central canal or neural foraminal stenosis. L3-L4: Mild intervertebral disc space narrowing with disc desiccation and tiny posterior annular disc bulge. Moderate facet arthrosis. Mild bilateral foraminal narrowing, left greater than right. Central canal is patent. L4-L5: Mild intervertebral disc space narrowing with tiny posterior disc bulge. Ligamentum flavum thickening with moderate facet arthrosis and trace facet effusions. Left foraminal/far lateral annular fissure. Central canal is patent. [id number] left foraminal stenosis. Mild right foraminal narrowing. L5-S1: Moderate intervertebral disc space narrowing. Spondylotic spurring with circumferential annular disc bulge/disc osteophyte complex. There is abutment with slight posterior displacement of the left S1 nerve root which is slightly enlarged compared to the right. Moderate narrowing of the left greater than right lateral recesses. Ligamentum flavum thickening with moderate facet arthrosis. Central canal is patent. Mild right with [id number] left foraminal narrowing. IMPRESSION: 1. Discogenic degeneration with facet arthrosis as above, most pronounced at L4- L5 and L5-S1. 2. No acute fracture or bone marrow edema. 3. No significant central canal stenosis. 4. Fusiform aneurysmal dilation of the infrarenal abdominal aorta redemonstrated measuring up to 4.1 cm. ACT 112: Negative or not required by law. The above report was generated using voice recognition software. It may contain grammatical, syntax or spelling errors. Electronically signed by: Mark Mcgregor M.D. 02/27/2024 3:00 PM Code Status & VTE Plan Code Status DNR/DNI VTE Prophylaxis Plan VTE Prophylaxis will be ordered: Yes Supervising Physician Co-Signing Physician Notes Patient seen and examined, chart reviewed, case discussed with Aguila Shrestha PA-C and I agree with the assessment and plan as above except as otherwise noted Labs and images reviewed 68-year-old male who presents with radicular pain down his left leg with numbness limiting his ability to ambulate. Lumbar spine with degenerative disc disease and suspected left-sided impingement. Patient has had some improvement with 10 mg of IV Decadron, Tylenol, oxycodone but incomplete resolution and inadequate control for ambulation. He was pending follow-up with Dr. Christie, consult has been placed for 02/27. No indication for emergent intervention at time of assessment and while his movement is somewhat limited by pain ankle dorsiflexion is plantarflexion is 5/5 at the bedside. PT pulses brisk. Agree with above. PG Care Time/CCT Total # of Minutes Spent Total Time Spent with Patient: Total time spent is greater than 50% in coordination of care (as documented) at patient's floor/unit and/or counseling patient: Coding [place] [address] INT INP/OBS CARE 2/55MIN Patient Type Established Medical Decision Making Moderate Complexity Diagnoses Acute left lumbar radiculopathy M54.16 Diabetes mellitus E11.9 Aneurysm of abdominal aorta I71.4 Hypertension I10
[2024-02-27] MEDS ORDERED: GLUCOSE 10 TAB/TUBE PO PRN (19:48)
[2024-02-27] MEDS ORDERED: GLUCAGON FOR INJ 1 MG VIAL SQ PRN (19:48)
[2024-02-27] MEDS ORDERED: GLUCOSE 40% GEL 15 GM TUBE PO PRN (19:48)
[2024-02-27] MEDS ORDERED: CARBOHYDRATES FOR HYPOGLYCEMIA PO PRN (19:48)
[2024-02-27] MEDS ORDERED: ONDANSETRON INJ 2 MG/ML 2 ML VIAL IV PRN (19:48)
[2024-02-27] MEDS ORDERED: MELATONIN 3 MG TAB PO PRN (19:48)
[2024-02-27] MEDS ORDERED: DEXTROSE 50% 50 ML SYRINGE IV PRN (19:48)
[2024-02-27] MEDS: INSULIN ASPART PER UNIT CHARGE SC SCH (20:35)
[2024-02-27] MEDS: ENOXAPARIN INJ 40 MG/0.4 ML SYR SQ SCH (21:43)
[2024-02-28] MEDS: oxyCODONE HCL IR 5 MG TAB (IMMEDIATE RELEASE) PO PRN (00:34)
[2024-02-28 07:48] LABS: Basophils # (auto) 0.03 K/uL (0.00-0.20); Basophils % (auto) 0.5 %; Eosinophils # (auto) 0.18 K/uL (0.00-0.50); Eosinophils % (auto) 3.1 %; Hematocrit (blood only) 36.2 % (42.0-52.0); Hemoglobin 11.3 g/dl (14.0-18.0); Immature Granulocytes # (auto) 0.02 K/uL (0.01-0.20); Immature Granulocytes % (auto) 0.3 %; Lymphocytes # (auto) 1.27 K/uL (1.20-3.40); Lymphocytes % (auto) 21.9 %; Mean Corpuscular Hemoglobin 25.3 pg (25.0-34.0); Mean Corpuscular Hgb Conc 31.2 g/dL (32.0-36.0); Mean Platelet Volume 10.1 fL (9.4-12.4); Monocytes # (auto) 0.41 K/uL (0.11-0.59); Monocytes % (auto) 7.1 %; Neutrophils % (auto) 67.1 %; Platelet Count 286 K/uL (130-400); RDW Coefficient of Variation 16.4 % (11.5-14.5); RDW Standard Deviation 48.1 fL (36.4-46.3); Red Blood Count 4.47 M/uL (4.70-6.10); White Blood Count 5.81 K/ul (4.8-10.8)
[2024-02-28 08:10] LABS: BUN Creatinine Ratio 18.4 (10-20); Calcium 9.2 mg/dl (8.6-10.3); Creatinine Clr Calc Pharmacy 95.8 ml/min
[2024-02-28] MEDS: lisinopril 5 MG TAB PO SCH (08:10)
[2024-02-28] MEDS: dexAMETHasone 6 MG in SYRINGE 0 ML IV SCH (08:10)
[2024-02-28] MEDS: ATORVASTATIN 40 MG TAB PO SCH (08:10)
[2024-02-28] MEDS: ACETAMINOPHEN 325 MG TAB PO PRN (08:13)
[2024-02-28] MEDS ORDERED: DEXAMETHASONE SOD INJ 4 MG/ML VIAL IV SCH ×2 (09:00)
[2024-02-28 09:26] LABS: Estimated Average Glucose 206 mg/dl; Hemoglobin A1C 8.8 % (4.5-5.6)
[2024-02-28] MEDS: FINASTERIDE 5 MG TAB PO SCH (09:44)
--- NOTE | 2024-02-28 10:46 | Orthopedic Consultation ---
Date of Consultation February 28, 2024 Assessment & Plan (1) Acute left lumbar radiculopathy: Assessment lumbar radiculopathy. Plan at this time he has an MRI lumbar spine available for review performed [facility] on 02/27/2024. He has evidence of normal age-related changes modest to space collapse most impressive at L5-S1. The neuroforamen are patent bilaterally. There is neuroforaminal disease moderate in nature L5-S1 left. Most significantly there is evidence of a posterolateral disc protrusion L5-S1 the left with a fragment migrating caudally most likely irritating the traversing S1 nerve root. Plan at this time I would like to consider consultation with interventional pain management for lumbar epidural injection. Ideally this would calm his symptoms down and allow him to heal without surgical intervention. History of Present Illness Reason for Consultation: Left leg pain Attending Physician: Randy De Leon MD History of Present Illness This very pleasant 68-year-old male that presents yesterday with worsening leg pain. He states this began 5 to 6 days ago. He denies any specific trauma fall event. He does note he has been very active around the home particularly removing Evens lights and up and down ladders. Symptoms involve the left buttock posterior lateral thigh extending below the knee into the ankle. It does limit his ability to stand and ambulate any distance. The right lower extremity is asymptomatic. He has not had any recent physical therapy epidural injections. Allergies Allergy/AdvReac Type Severity Reaction Status Date / Time No Known Allergies Allergy Verified 04/22/23 15:17 Home Medications Medication Instructions Recorded Confirmed Type atorvastatin 40 mg tablet 40 mg PO QAM 08/21/18 02/27/24 History lisinopril 5 mg tablet 10 mg PO QAM 08/21/18 02/27/24 History finasteride 5 mg tablet 5 mg PO QAM 09/07/20 02/27/24 History empagliflozin 25 mg tablet 25 mg PO UD 07/19/22 02/27/24 History (Jardiance) sildenafil 100 mg tablet 100 mg PO DAILY PRN sexual 02/18/24 02/27/24 Rx activity #10 tabs prednisone 20 mg tablet 20 mg PO DAILY 4 days #4 tabs 02/25/24 02/27/24 Rx metformin 500 mg tablet,extended 1,000 mg PO BID 02/27/24 02/27/24 History release 24 hr pantoprazole 20 mg tablet,delayed 20 mg PO BID 02/27/24 02/27/24 History release semaglutide 7 mg tablet (Rybelsus) 7 mg PO DAILY 02/27/24 02/27/24 History Patient History Medical History Diabetes mellitus, type 2 BPH (benign prostatic hyperplasia) Hypertension Hyperlipidemia Aneurysm of abdominal aorta (under annual surveillance by PCP) Surgical History History of prostate surgery [facility] TURP (08/27/18): LMA#5 at [facility] H/O colonoscopy Hx of bilateral cataract extraction [place] [place] Family History Father Prostate cancer Hypertension Brother Prostate cancer Mother Hypertension Diabetes Sister Diabetes Other No family history of adverse response to anesthesia Social History Smoking Status: Former smoker Tobacco Type: Cigarettes packs per day: 1.5; Cigarettes Per Day: Quit 5 years ago. 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 Alert and cooperative. He has plus 5 out of 5 bilateral plantarflexion dorsiflexion quadriceps. Sensory appears to be symmetric intact. There is tenderness palpation of the left sciatic notch. There is some trochanteric tenderness along the IT band as well. He has tension signs straight leg raising on the left negative on the right. Results & Data Vital Signs (Past 12 Hours) Vital Signs Temp Pulse Resp BP Pulse Ox O2 Del Method 02/28/24 07:15 Room Air 02/28/24 07:09 36.3 C L 71 16 123/72 94 Room Air
--- NOTE | 2024-02-28 15:43 | Hospitalist Progress Note ---
Date of Service February 28, 2024 Assessment & Plan (1) Acute left lumbar radiculopathy: (2) Diabetes mellitus: (3) Hypertension: (4) Aneurysm of abdominal aorta: Plan Ike is a 68-year-old male with PMH of GERD, BPH, diabetes mellitus, urinary retention, and lumbar radiculopathy. Originally, he developed left hip pain around 7 days prior to admission. This was potentially exacerbated when he took down his Evens lights 10 days prior to admission. He presented to ED on 02/24, and felt better after receiving steroids and tried to go home. Despite taking prednisone 20 mg p.o. BID after ED visit, his symptoms have persisted. Returned to the hospital on 02/26 for ongoing left hip pain with radiation down the leg. Patient denies back pain or saddle anesthesia on admission. No changes in urinary or bowel habits or urinary incontinence. #Acute left lumbar radiculopathy Lumbar spine MRI on arrival revealed discogenic degeneration most prominent at L4-L5, and L5-S1 Continue Decadron 6 mg IV QAM in setting of failure of outpatient treatment on oral steroids Continue Tylenol and oxycodone p.o. as needed Started gabapentin 100 mg TID Ortho spine consulted -- recommended interventional pain management consult to hopefully calm his symptoms down without surgical intervention Pain management consulted for lumbar epidural injection PT/OT evaluations appreciated #Diabetes mellitus -Takes metformin 1000 mg twice daily, Rybelsus 7 mg p.o. daily outpatient (taking off Jardiance and switch to Rybelsus in beginning of February) -A1c 8.8% -SSI --Goal BSG Range: Low 110 mg/dL, High 140 mg/dL --Correction Factor: 50 mg/dL/unit --Carbohydrate ratio = 15 g/unit --BSGs ACHS if eating, q6h if npo -Pharmacy glycemic management consult appreciated in the setting of high-dose steroid use #Hypertension -Chronic, stable -Continue lisinopril 5 mg QAM #Aneurysm of abdominal aorta Lumbar spine MRI redemonstrated infrarenal abdominal aorta at approximately 4.1 cm Noted on imaging as far back as 2019 Continue regular surveillance VTE PPx: Lovenox 40 mg SQ q24h CODE STATUS: DNR/DNI Dispo: Continue inpatient stay for IV steroids, pain control, pain management evaluation Reviewed outpatient records Started gabapentin Consulted pharmacy glycemic management Admission and Anticipated Discharge Date Admission Date: February 27, 2024 Supervising Physician Co-Signing Physician Notes Attending Attestation - Chart reviewed, care plan d/w WING Escalera. I agree w/ the parisi components of her documentation. Randy De Leon MD Subjective Patient seen and evaluated at bedside. He reports improvement in his symptoms with the steroids. He believes the steroids helped more than the pain medication does. He notes his pain at rest is mild, but with activity he is still experiencing significant pain. He describes the pain as a throbbing sensation that radiates from his left hip/buttock down his entire left lower extremity. We discussed the recommendation from orthospine for lumbar epidural injection with pain management. Unfortunately, this likely will not occur over the weekend, but hopefully can be done on Friday. No additional complaints or concerns at this time. Physical Exam Physical Exam: General: No acute distress, nondiaphoretic, well-developed, well-nourished. Cardiac: Regular rate and rhythm without murmurs gallops or rubs. Pulm: Clear to auscultation bilaterally without wheezes, rales or rhonchi. No respiratory distress. 94% on room air. Abdominal: Soft, nontender, nondistended. Bowel sounds present. Neuro: A&O x3. No focal neurological deficits. Extremities: Sensation intact and symmetric in lower extremities bilaterally. Normal plantarflexion and dorsiflexion bilaterally. Patient able to wiggle toes bilaterally. Feet warm to touch bilaterally. Results & Data Results & Data Vital Signs (Past 12 Hours) Vital Signs Temp Pulse Resp BP Pulse Ox O2 Del Method 02/28/24 14:19 97.3 F L 67 17 130/72 94 Room Air 02/28/24 07:15 Room Air 02/28/24 07:09 97.3 F L 71 16 123/72 94 Room Air Laboratory Results Reviewed CBC with differential Reviewed BMP Reviewed A1c Diagnostic Findings Reviewed lumbar spine MRI PG Care Time/CCT Total # of Minutes Spent Total Time Spent with Patient: Total time spent is greater than 50% in coordination of care (as documented) at patient's floor/unit and/or counseling patient: Coding Level of Care Code 25601 SUB INP/OBS CARE 3/50MIN Diagnoses Acute left lumbar radiculopathy M54.16 Diabetes mellitus E11.9 Hypertension I10 Aneurysm of abdominal aorta I71.4
[2024-02-28] MEDS ORDERED: PHARMACY GLYCEMIC MGMT CONSULT PRN (17:25)
[2024-02-28] MEDS: LANTUS PER UNIT CHARGE SC ONE (18:18)
[2024-02-28] MEDS: GABAPENTIN 100 MG CAP PO SCH (21:14)
[2024-02-29] MEDS ORDERED: ACETAMINOPHEN 500 MG TAB PO PRN (06:19)
[2024-02-29] MEDS: ACETAMINOPHEN 500 MG TAB PO SCH (07:01)
[2024-02-29 07:07] LABS: Basophils # (auto) 0.03 K/uL (0.00-0.20); Basophils % (auto) 0.6 %; Eosinophils # (auto) 0.03 K/uL (0.00-0.50); Eosinophils % (auto) 0.6 %; Hematocrit (blood only) 37.7 % (42.0-52.0); Hemoglobin 11.7 g/dl (14.0-18.0); Immature Granulocytes # (auto) 0.01 K/uL (0.01-0.20); Immature Granulocytes % (auto) 0.2 %; Lymphocytes % (auto) 35.1 %; Mean Corpuscular Hemoglobin 25.4 pg (25.0-34.0); Mean Corpuscular Volume 81.8 fL (80.0-100.0); Mean Platelet Volume 9.3 fL (9.4-12.4); Monocytes # (auto) 0.39 K/uL (0.11-0.59); Monocytes % (auto) 7.2 %; Neutrophils # (auto) 3.05 K/uL (1.40-6.50); Neutrophils % (auto) 56.3 %; Platelet Count 294 K/uL (130-400); RDW Coefficient of Variation 16.3 % (11.5-14.5); RDW Standard Deviation 48.1 fL (36.4-46.3); Red Blood Count 4.61 M/uL (4.70-6.10); White Blood Count 5.41 K/ul (4.8-10.8)
[2024-02-29 07:21] LABS: BUN Creatinine Ratio 19.5 (10-20); Calcium 9.4 mg/dl (8.6-10.3); Creatinine Clr Calc Pharmacy 101.6 ml/min; Potassium 3.5 mmol/L (3.5-5.1)
[2024-02-29] MEDS ORDERED: oxyCODONE HCL IR 5 MG TAB (IMMEDIATE RELEASE) PO PRN (14:18)
[2024-02-29] MEDS: HYDROmorphone INJ 0.5 MG/0.5 ML SYR IV PRN (14:31)
--- NOTE | 2024-02-29 14:59 | Pharmacy Report ---
Pharmacy Glycemic Short Note 2 - Date of Service February 29, 2024 - Glycemic Short BSG Results (Last 24 hours): 02/28/24 02/28/24 02/29/24 16:32 20:32 06:35 Glucose 92 POC Glucose 190 H 177 H 02/29/24 02/29/24 07:33 11:55 Glucose POC Glucose 91 179 H OUTPATIENT ANTIDIABETIC REGIMEN: * Metformin ER 1000 mg PO BID * Rybelsus 7 mg PO qAM * A1c = 8.8% ASSESSMENT: * Ike is a 68 yo T2DM admitted with acute left lumbar radiculopathy. Started on dexamethasone 6 mg IV daily. * SQ basal + bolus insulin initiated for steroid induced hyperglycemia. * Fasting BSG slightly below goal. Will decreased Lantus by ~25%. * Post prandial BSGs are acceptable thus far today. No changes to Novolog orders. PLAN FOR INPATIENT GLYCEMIC CONTROL: * Hold outpatient oral diabetes medications * Basal insulin * Lantus 13 units SQ daily with dinner * Bolus insulin * NovoLog per scale ACHS or Q6hrs while NPO * Goal Range: Low 110 mg/dL - High 140 mg/dL * Correction Factor: 25 mg/dL/unit * Nutritional / Prandial insulin per carb ratio of 1 unit per 8 grams CHO consumed
[2024-02-29] MEDS: LANTUS PER UNIT CHARGE SC SCH (17:14)
--- NOTE | 2024-02-29 17:41 | Hospitalist Progress Note ---
Date of Service February 29, 2024 Assessment & Plan (1) Acute left lumbar radiculopathy: (2) Diabetes mellitus: (3) Hypertension: (4) Aneurysm of abdominal aorta: Plan Ike is a 68-year-old male with PMH of GERD, BPH, diabetes mellitus, urinary retention, and lumbar radiculopathy. Originally, he developed left hip pain around 7 days prior to admission. This was potentially exacerbated when he took down his Evens lights 10 days prior to admission. He presented to ED on 02/24, and felt better after receiving steroids and tried to go home. Despite taking prednisone 20 mg p.o. BID after ED visit, his symptoms have persisted. Returned to the hospital on 02/26 for ongoing left hip pain with radiation down the leg. Patient denies back pain or saddle anesthesia on admission. No changes in urinary or bowel habits or urinary incontinence. Pain continues to be uncontrolled with any degree of activity. #Acute left lumbar radiculopathy Lumbar spine MRI on arrival revealed discogenic degeneration most prominent at L4-L5, and L5-S1 Continue Decadron 6 mg IV QAM in setting of failure of outpatient treatment on oral steroids Will give addition 4 mg IV x 1 now - consider adjusting to 4 mg IV BID dosing Pain regimen: Scheduled Tylenol 1000 mg Q8H, gabapentin 100 mg TID, baclofen 10 mg BID, oxycodone 5 mg PO Q6H PRN moderate pain, oxycodone 10 mg PO Q6H PRN severe pain, Dilaudid 0.5 mg IV Q6H PRN severe pain Ortho spine consulted -- recommended interventional pain management consult to hopefully calm his symptoms down without surgical intervention Pain management consulted for lumbar epidural injection PT/OT evaluations appreciated #Diabetes mellitus -Takes metformin 1000 mg twice daily, Rybelsus 7 mg p.o. daily outpatient (taking off Jardiance and switch to Rybelsus in beginning of February) -A1c 8.8% -SSI --Goal BSG Range: Low 110 mg/dL, High 140 mg/dL --Correction Factor: 50 mg/dL/unit --Carbohydrate ratio = 15 g/unit --BSGs ACHS if eating, q6h if npo -Pharmacy glycemic management consult appreciated in the setting of high-dose steroid use #Hypertension -Chronic, stable -Continue lisinopril 5 mg QAM #Aneurysm of abdominal aorta Lumbar spine MRI redemonstrated infrarenal abdominal aorta at approximately 4.1 cm Noted on imaging as far back as 2019 Continue regular surveillance VTE PPx: Lovenox 40 mg SQ q24h CODE STATUS: DNR/DNI Dispo: Continue inpatient stay for IV steroids, pain control, pain management evaluation Started baclofen Adjusted pain regimen Ordered additional dexamethasone dose Admission and Anticipated Discharge Date Admission Date: February 27, 2024 Supervising Physician Co-Signing Physician Notes Attending Attestation - Chart reviewed, care plan d/w WING Escalera. I agree w/ the parisi components of her documentation. Appreciate ortho-spine & pain management consults. Randy De Leon MD Subjective Patient seen and evaluated at bedside. He reports that his pain is uncontrolled. He states that if he was at rest, his pain at 3/10 but with any degree of ambulation or activity he states it becomes "excruciating" and takes greater than an hour of rest to resolve. We discussed updates to his pain regim en. All questions/concerns were answered. Physical Exam Physical Exam: General: No acute distress, nondiaphoretic, well-developed, well-nourished. Cardiac: Regular rate and rhythm without murmurs gallops or rubs. Pulm: Clear to auscultation bilaterally without wheezes, rales or rhonchi. No respiratory distress. 94% on room air. Abdominal: Soft, nontender, nondistended. Bowel sounds present. Neuro: A&O x3. No focal neurological deficits. Extremities: Sensation intact and symmetric in lower extremities bilaterally. Normal plantarflexion and dorsiflexion bilaterally. Patient able to wiggle toes bilaterally. Feet warm to touch bilaterally. Results & Data Results & Data Vital Signs (Past 12 Hours) Vital Signs Temp Pulse Resp BP Pulse Ox O2 Del Method 02/29/24 15:38 97.9 F 73 16 118/67 94 Room Air 02/29/24 07:25 97.9 F 74 16 118/68 94 Room Air Laboratory Results Reviewed CBC with differential Reviewed BMP PG Care Time/CCT Total # of Minutes Spent Total Time Spent with Patient: Total time spent is greater than 50% in coordination of care (as documented) at patient's floor/unit and/or counseling patient: Coding Level of Care Code 46916 SUB INP/OBS CARE 3/50MIN Diagnoses Acute left lumbar radiculopathy M54.16 Diabetes mellitus E11.9 Hypertension I10 Aneurysm of abdominal aorta I71.4
[2024-02-29] MEDS: dexAMETHasone 4 MG in SYRINGE 0 ML IV ONE (17:57)
[2024-02-29] MEDS: BACLOFEN 10 MG TAB PO SCH (20:04)
[2024-03-01] MEDS: oxyCODONE HCL IR 5 MG TAB (IMMEDIATE RELEASE) PO PRN (02:51)
[2024-03-01 07:14] LABS: Hemoglobin 11.9 g/dl (14.0-18.0); Mean Corpuscular Hemoglobin 25.4 pg (25.0-34.0); Mean Corpuscular Hgb Conc 31.3 g/dL (32.0-36.0); Mean Platelet Volume 9.7 fL (9.4-12.4); Platelet Count 290 K/uL (130-400); RDW Coefficient of Variation 16.2 % (11.5-14.5); RDW Standard Deviation 47.8 fL (36.4-46.3); Red Blood Count 4.69 M/uL (4.70-6.10); White Blood Count 6.66 K/ul (4.8-10.8)
--- NOTE | 2024-03-01 08:20 | Pain Management Consultation ---
Date of Consultation March 01, 2024 Assessment & Plan (1) Acute left lumbar radiculopathy: (2) Bulging lumbar disc: Plan 1. We reviewed his symptomatic presentation and MRI findings. We discussed treatment options. We discussed pursuing a left L5-S1 and S1 transforaminal TRACY. Side effects versus benefits were discussed with the patient. All his questions were answered. Due to his use of Lovenox over the past 24 hours, we are unable to pursue TRACY until tomorrow-Friday, 03/02/2024 at the earliest. We will tentatively plan for injection in the outpatient pain clinic tomorrow pending insurance authorization. Patient and hospitalist will be updated once approval occurs for discharge planning purposes. Patient will be updated with preprocedural instructions regarding n.p.o. status pending insurance approval with a tentative plan for his injection to occur around 1330. 2. Will progress his gabapentin to 200 mg 3 times daily 3. Recommend patient continue with his current breakthrough pain opiate regimen and IV Decadron Thank you for allowing us to participate in the care of Mr. Fair History of Present Illness Reason for Consultation: Intractable left lower extremity radicular pain Requesting Physician: Doug Christie DO Attending Physician: Randy De Leon MD History of Present Illness Mr. Fair is a 68-year-old white male who was admitted due to acute onset of left lower extremity radicular pain which has been intractable starting approximately 8-10 days ago without known injury. Patient reports that his pain is 90% radicular in an S1 distribution with paresthesias affecting the foot. His pain is 10% axial in the left lumbosacral region only. He describes the pain is episodic and sharp, shooting and stabbing in characteristic. His pain is minimal in the supine position if he remains still but his pain escalates with any movement especially his out of bed activity and walking. He rates his pain a 3/10 at its best and a 10/10 at its worst. He is finding some moderate benefit with the IV Decadron and IV hydromorphone. He has minimal relief from oxycodone. He is tolerating gabapentin recently started and titrated to 100 mg 3 times daily. He denies any bowel/bladder incontinence or saddle anesthesia. He denies any right lower extremity radicular pattern pain. Patient denies any notable weakness of the lower extremity, foot drop or episodes of falling. MRI of the lumbar spine was completed and patient was seen by Dr. Christie who recommended consideration of lumbar TRACY prior to considering surgical intervention. Plan of care discussed with Dr. Divine Scott. Pain Assessment Full Body Front + Back: 2 1. Left S1 radiculopathy to the foot with paresthesia Pain scale - at its best (0-10): 3 Pain scale - at its worst (0-10): 10 Allergies Allergy/AdvReac Type Severity Reaction Status Date / Time No Known Allergies Allergy Verified 04/22/23 15:17 Home Medications Medication Instructions Recorded Confirmed Type atorvastatin 40 mg tablet 40 mg PO QAM 08/21/18 02/27/24 History lisinopril 5 mg tablet 10 mg PO QAM 08/21/18 02/27/24 History finasteride 5 mg tablet 5 mg PO QAM 09/07/20 02/27/24 History empagliflozin 25 mg tablet 25 mg PO UD 07/19/22 02/27/24 History (Jardiance) sildenafil 100 mg tablet 100 mg PO DAILY PRN sexual 02/18/24 02/27/24 Rx activity #10 tabs prednisone 20 mg tablet 20 mg PO DAILY 4 days #4 tabs 02/25/24 02/27/24 Rx metformin 500 mg tablet,extended 1,000 mg PO BID 02/27/24 02/27/24 History release 24 hr pantoprazole 20 mg tablet,delayed 20 mg PO BID 02/27/24 02/27/24 History release semaglutide 7 mg tablet (Rybelsus) 7 mg PO DAILY 02/27/24 02/27/24 History Pain History Pain Intensity Pain scale - at its best (0-10): 3 Pain scale - at its worst (0-10): 10 Patient History Medical History Diabetes mellitus, type 2 BPH (benign prostatic hyperplasia) Hypertension Hyperlipidemia Aneurysm of abdominal aorta (under annual surveillance by PCP) Surgical History History of prostate surgery [facility]URP (08/27/18): LMA#5 at [facility] H/O colonoscopy Hx of bilateral cataract extraction History of bilateral inguinal hernia repair ~2012 ([facility] [place]) Family History Father Prostate cancer Hypertension Brother Prostate cancer Mother Hypertension Diabetes Sister Diabetes Other No family history of adverse response to anesthesia Social History Smoking Status: Former smoker Tobacco Type: Cigarettes packs per day: 1.5; Cigarettes Per Day: Quit 5 years ago. 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 Speech and thought process appropriate. Mood and affect appropriate. Cognition intact. Head: Normocephalic and atraumatic. ENT: No evidence of nasal or oral mucosal lesions. Mucous membranes are moist. Eyes: Pupils equal round reactive to light. Neck: Supple without adenopathy and full range of motion. Abdomen: Soft and nondistended. No organomegaly. Bowel sounds active. Back/spine: Patient able to logroll towards his right side for visual inspection and examination. Nontender over the midline. No focal facet or SI joint tenderness. He is nontender in the lumbar paravertebral, quadratus lumborum or gluteal musculature. Lower extremities: SLR positive on the left reproducing S1 radicular pain aggravated with dorsiflexion. SLR negative on the right. Strength testing was 5/5 with EHL testing, dorsiflexion, plantarflexion and hip flexion/extension maneuvering. Slight increase in pain with resisted maneuvering on the left. Sensation is intact to sharp and dull. No appreciable edema. Neurologic: Cranial nerves grossly intact. Ambulatory function not witnessed. Results (Pain Clinic) Diagnostic Review MRI Findings: [facility], [place] [phone] Magnetic Resonance Report Patient: JAYLYN FAIR Admit Date: 02/27/24 MR#: [id number] Address[address]: [address] Acct ID:[id number] Address2: Date: [address] [facility] Zip: [place] [address] Age: 68 Location: ED Sex: M Room/Bed: Att Phy: Diagnosis: LT HIP AND LEG PAIN AND NUMBNESS Rubina Phy: Rabia Mcneil DO Service Date: 02/27/24 [facility] Phy: Interpreting Phy: Mark McgregorAdmit Phy: Ordering Phy: Sravan Leach DO cc: ~ MR lumbar spine wo con CLINICAL HISTORY: 68 years-old Male with left sided radicular. Chronic low back pain with left lower extremity radicular symptoms COMPARISON: CT 02/25/2024 TECHNIQUE: Multiplanar, multi sequence MRI of the lumbar spine was performed without intravenous contrast. FINDINGS: Distended urinary bladder is partially imaged. Conus medullaris terminates at T12-L1. No acute fracture, subluxation or bone marrow edema. No epidural or paraspinal fluid collections. There is no dilation of the infrarenal abdominal aorta redemonstrated measuring approximately 4.1 cm. Mild multilevel spondylitic spurring with [id number]-[id number] facet arthrosis. T12-L1: No central canal or neural foraminal stenosis. L1-L2: No central canal or neural foraminal stenosis. L2-L3: No central canal or neural foraminal stenosis. L3-L4: Mild intervertebral disc space narrowing with disc desiccation and tiny posterior annular disc bulge. Moderate facet arthrosis. Mild bilateral foraminal narrowing, left greater than right. Central canal is patent. L4-L5: Mild intervertebral disc space narrowing with tiny posterior disc bulge. Ligamentum flavum thickening with moderate facet arthrosis and trace facet effusions. Left foraminal/far lateral annular fissure. Central canal is patent. Abnx-kb-nwrdkuca left foraminal stenosis. Mild right foraminal narrowing. L5-S1: Moderate intervertebral disc space narrowing. Spondylotic spurring with circumferential annular disc bulge/disc osteophyte complex. There is abutment with slight posterior displacement of the left S1 nerve root which is slightly enlarged compared to the right. Moderate narrowing of the left greater than right lateral recesses. Ligamentum flavum thickening with moderate facet arthrosis. Central canal is patent. Mild right with kesr-mh-exkycdzz left foraminal narrowing. IMPRESSION: 1. Discogenic degeneration with facet arthrosis as above, most pronounced at L4- L5 and L5-S1. 2. No acute fracture or bone marrow edema. 3. No significant central canal stenosis. 4. Fusiform aneurysmal dilation of the infrarenal abdominal aorta redemonstrated measuring up to 4.1 cm. ACT 112: Negative or not required by law. The above report was generated using voice recognition software. It may contain grammatical, syntax or spelling errors. Electronically signed by: Mark Mcgregor M.D. 02/27/2024 3:00 PM Dictated: 02/27/24 1455 Transcribed: 02/27/24 145 Previous Records Review Previous Records: personally reviewed by me
[2024-03-01] MEDS: GABAPENTIN 100 MG CAP PO ONE (08:58)
--- NOTE | 2024-03-01 10:45 | Pharmacy Report ---
Pharmacy Glycemic Short Note 2 - Date of Service March 01, 2024 - Glycemic Short BSG Results (Last 24 hours): 02/29/24 02/29/24 02/29/24 11:55 17:03 20:22 POC Glucose 179 H 182 H 203 H 03/01/24 07:47 POC Glucose 108 H OUTPATIENT ANTIDIABETIC REGIMEN: * Metformin ER 1000 mg PO BID * Rybelsus 7 mg PO qAM * A1c = 8.8% ASSESSMENT: 03/01/24 * patient received 13 units of Lantus, and 22 of Novolog yesterday * fasting blood sugar came good this morning 108 mg/dL * blood sugar is trending high at lunch so tighten carb ratio to 7 * * Ike is a 68 yo T2DM admitted with acute left lumbar radiculopathy. Started on dexamethasone 6 mg IV daily. * SQ basal + bolus insulin initiated for steroid induced hyperglycemia. * Fasting BSG slightly below goal. Will decreased Lantus by ~25%. * Post prandial BSGs are acceptable thus far today. No changes to Novolog orders. PLAN FOR INPATIENT GLYCEMIC CONTROL: * Hold outpatient oral diabetes medications * Basal insulin * Lantus 13 units SQ daily with dinner * Bolus insulin * NovoLog per scale ACHS or Q6hrs while NPO * Goal Range: Low 110 mg/dL - High 140 mg/dL * Correction Factor: 25 mg/dL/unit * Nutritional / Prandial insulin per carb ratio of 1 unit per 7 grams CHO consumed
[2024-03-01] MEDS: GABAPENTIN 100 MG CAP PO SCH (13:32)
[2024-03-01] MEDS: LANTUS PER UNIT CHARGE SC ONE (14:16)
--- NOTE | 2024-03-01 17:59 | Hospitalist Progress Note ---
Date of Service March 01, 2024 Assessment & Plan (1) Acute left lumbar radiculopathy: (2) Diabetes mellitus: (3) Hypertension: (4) Aneurysm of abdominal aorta: Plan Ike is a 68-year-old male with PMH of GERD, BPH, diabetes mellitus, urinary retention, and lumbar radiculopathy. Originally, he developed left hip pain around 7 days prior to admission. This was potentially exacerbated when he took down his Evens lights 10 days prior to admission. He presented to ED on 02/24, and felt better after receiving steroids and tried to go home. Despite taking prednisone 20 mg p.o. BID after ED visit, his symptoms have persisted. Returned to the hospital on 02/26 for ongoing left hip pain with radiation down the leg. Patient denies back pain or saddle anesthesia on admission. No changes in urinary or bowel habits or urinary incontinence. #Acute left lumbar radiculopathy Lumbar spine MRI on arrival revealed discogenic degeneration most prominent at L4-L5, and L5-S1 Continue Decadron 6 mg IV QAM in setting of failure of outpatient treatment on oral steroids Continue Tylenol and oxycodone p.o. as needed Increased gabapentin 200 mg TID Ortho spine consulted -- recommended interventional pain management consult to hopefully calm his symptoms down without surgical intervention Pain management consulted for lumbar epidural injection Plan for discharge 03/02 with transport set up at 1200 to take patient to pain management clinic NPO at midnight, Lovenox on hold #Diabetes mellitus -Takes metformin 1000 mg twice daily, Rybelsus 7 mg p.o. daily outpatient (taking off Jardiance and switch to Rybelsus in beginning of February) -A1c 8.8% -SSI --Goal BSG Range: Low 110 mg/dL, High 140 mg/dL --Correction Factor: 50 mg/dL/unit --Carbohydrate ratio = 15 g/unit --BSGs ACHS if eating, q6h if npo -Pharmacy glycemic management consult appreciated in the setting of high-dose steroid use #Hypertension -Chronic, stable -Continue lisinopril 5 mg QAM #Aneurysm of abdominal aorta Lumbar spine MRI redemonstrated infrarenal abdominal aorta at approximately 4.1 cm Noted on imaging as far back as 2019 Continue regular surveillance VTE PPx: Lovenox 40 mg SQ q24h CODE STATUS: DNR/DNI Dispo: Discharge 03/02 with transport to pain management clinic for injection Discussed case with pain management Discusseed discharge planning with case management Admission and Anticipated Discharge Date Admission Date: February 29, 2024 Supervising Physician Co-Signing Physician Notes Attending Attestation - Chart reviewed, care plan d/w WING Escalera. I agree w/ the par[place] components of her documentation. Randy De Leon MD Subjective Patient seen and evaluated at bedside. He reports the adjustments in his pain regimen have definitely improved his pain, but his sharp/stabbing pain with activity is still excruciating. Discussed the recommendations and plan set in place by the pain management provider. Patient is agreeable. No additional complaints or concerns at this time. Physical Exam Physical Exam: General: No acute distress, nondiaphoretic, well-developed, well-nourished. Cardiac: Regular rate and rhythm without murmurs gallops or rubs. Pulm: Clear to auscultation bilaterally without wheezes, rales or rhonchi. No respiratory distress. 97% on room air. Abdominal: Soft, nontender, nondistended. Bowel sounds present. Neuro: A&O x3. No focal neurological deficits. Extremities: Sensation intact and symmetric in lower extremities bilaterally. Normal plantarflexion and dorsiflexion bilaterally. Patient able to wiggle toes bilaterally. Feet warm to touch bilaterally. Results & Data Results & Data Vital Signs (Past 12 Hours) Vital Signs Temp Pulse Resp BP Pulse Ox O2 Del Method 03/01/24 14:19 98.1 F 82 16 124/70 97 Room Air 03/01/24 07:21 97.5 F L 63 16 138/79 97 Room Air Laboratory Results Reviewed CBC PG Care Time/CCT Total # of Minutes Spent Total Time Spent with Patient: Total time spent is greater than 50% in coordination of care (as documented) at patient's floor/unit and/or counseling patient: Coding Level of Care Code 55651 SUB INP/OBS CARE 3/50MIN Diagnoses Acute left lumbar radiculopathy M54.16 Diabetes mellitus E11.9 Hypertension I10 Aneurysm of abdominal aorta I71.4
[2024-03-02 07:37] VITALS: BP 121/72; PULSE 60; RESP 16; TEMP 97.5; O2SAT 94
[2024-03-02] MEDS: HYDROmorphone INJ 0.5 MG/0.5 ML SYR IV STA (08:19)
--- NOTE | 2024-03-02 09:59 | Discharge Summary ---
Discharge Summary Date of Service March 02, 2024 Principal Dx & Hospital Course #1 = Principal Diagnosis (1) Acute left lumbar radiculopathy: (2) Diabetes mellitus: (3) Hypertension: (4) Aneurysm of abdominal aorta: Jasmeet Ike is a 68-year-old male with PMH of GERD, BPH, diabetes mellitus, urinary retention, and lumbar radiculopathy. Originally, he developed left hip pain around 7 days prior to admission. This was potentially exacerbated when he took down his [place] lights 10 days prior to admission. He presented to ED on 02/24, and felt better after receiving steroids and tried to go home. Despite taking prednisone 20 mg p.o. BID after ED visit, his symptoms have persisted. Returned to the hospital on 02/26 for ongoing left hip pain with radiation down the leg. Patient denies back pain or saddle anesthesia on admission. No changes in urinary or bowel habits or urinary incontinence. Pain continues to be uncontrolled with any degree of activity. #Acute left lumbar radiculopathy Lumbar spine MRI on arrival revealed discogenic degeneration most prominent at L4-L5, and L5-S1 Treated with Decadron 6mg IV daily inpatient. Failued outpatient PO steroids Patient discharged to report to pain management clinic for injection on 03/02. Advised to use Tylenol and breakthrough oxycodone for pain after procedure Gabapentin adjusted to 200mg TID on discharge. Ortho spine consulted who recommended supportive care w/ pain management #Diabetes mellitus -Takes metformin 1000 mg twice daily, Rybelsus 7 mg p.o. daily outpatient (taking off Jardiance and switch to Rybelsus in beginning of February) -A1c 8.8% #Hypertension -Chronic, stable -Continue lisinopril 5 mg QAM #Aneurysm of abdominal aorta Lumbar spine MRI redemonstrated infrarenal abdominal aorta at approximately 4.1 cm Noted on imaging as far back as 2019 Continue regular surveillance Patient dischargd home 03/02. Admission HPI Per Admitting Provider Ike is a 68-year-old male with PMH of GERD, BPH, diabetes mellitus, urinary retention, and lumbar radiculopathy. He presented on 02/26 for left hip pain with radiation down the leg. Patient denies back pain or saddle anesthesia on admission. No changes in urinary or bowel habits or urinary incontinence. Patient originally presented to the ED 2 days ago on 1/15, and felt better after receiving steroids and tried to go home. Despite taking prednisone 20 mg p.o. BID after ED visit, his symptoms have persisted. Originally, he developed left hip pain around 6 to 7 days ago. This was potentially exacerbated when he took down his [place] lights 10 days ago. Patient did not take his regular morning medicine today. Only recent change was that he was taken off Jardiance at the beginning of February, started on Rybelsus. He describes his left hip pain as a "throbbing" pain that shoots down his leg. His left calf is so sore from the throbbing that he feels like there is a constant "charley horse". He rates the pain 12/10 at its worst, and 6/10 at present after receiving pain medicine in the ED. No prior history of injuries to his left hip or leg. No hardware in the left leg. No history of blood clots in the left leg. Patient is a former tobacco cigarette smoker but quit 5 years ago; smoked for 50 years; 3 PPD. He also reports that he drinks 2-3 beers per day, but has not had any alcohol in the past 3 days. No history of alcohol withdrawal. The pain is not worse when he bears weight on it. Patient is hypertensive at 152/104 at time of admission; vitals otherwise stable. ED course: Decadron 10 mg IV Zofran 4 mg IV Morphine 4 mg IV ROS: Patient endorses pain in left hip/calf/foot, numbness/tingling in left calf and foot, and swelling in calf. Patient denies fever, chills, night-sweats, headache, chest pain, SOB, abdominal pain, N/V/D, urinary incontinence, changes in urinary/bowel habits, blood in the urine or stool, lower back pain, or saddle anesthesia. Discharge Exam Constitutional WD/WN, vitals as above Eyes PERRL, conjunctivae normal, anicteric sclerae Respiratory normal respiratory effort, lungs clear to auscultation Cardiovascular RRR, no murmur, no edema Psychiatric A+Ox3, euthymic affect Discharge Plan Discharge Items Patient Disposition: Home - Self-Care Reason For Visit: LEFT HIP/LEG PAIN, AMBULATORY DYSFUNCTION Discharge Diagnosis: Acute left lumbar radiculopathy Activity: Resume your previous activity Non-emergency contact: Primary Care Provider and Pain Management Call non-emergency contact if: you have any medication questions, your symptoms worsen and your pain is not controlled Follow-up/Referrals: Divine Scott DO [Physician] - 03/02/24 1:00 pm Rabia Mcneil DO [Primary Care Provider] - 03/05/24 3:25 pm Diet: Carb Consistent or DM2 Addtl Attending Provider Instructions: Mr. Fair, You were recently hospitalized for left hip pain with radiation down your leg. You were evaluated by our orthopedic spine doctor who recommended pain management consultation. You are to have an injection with them today, 03/02. Please see recommendations below regarding your discharge. 1. Please use oxycodone 10mg every 6 hours as needed for pain. 2. Please take Gabapentin 200mg 3 times daily. 3. Please use Baclofen 10mg twice daily. 4. Please take Tylenol 1000mg every 8 hours. 5. The remainder of your medications may be resumed outpatient. If you develop any worsening pain, loss of bowel or bladder function, chest pain, or shortness of breath please report back to the ER for further care. Sincerely, Padmini Hebert PA-C Pending Studies at Discharge: No Stand-Alone Forms: [facility], Smoking Cessation Medications and DC Order Prescriptions: New baclofen 10 mg Tablet 10 mg PO BID Qty: 30 0RF gabapentin 100 mg Capsule 200 mg PO TID Qty: 60 0RF oxycodone 5 mg Tablet 10 mg PO Q6 PRN (Reason: pain (scale score 7-10)) Qty: 20 0RF Continued sildenafil 100 mg tablet 100 mg PO DAILY PRN (Reason: sexual activity) Qty: 10 6RF Rx Instructions: Administer 1 hour prior to activity on an empty stomach atorvastatin 40 mg Tablet 40 mg PO QAM lisinopril 5 mg Tablet 10 mg PO QAM finasteride 5 mg tablet 5 mg PO QAM Jardiance 25 mg Tablet 25 mg PO UD Rx Instructions: 25 mg po qam. last filled in january for 30 day supply. Per pharmacist, they think rybelsus replaced it but not sure. pantoprazole 20 mg tablet,delayed release (DR/EC) 20 mg PO BID Rybelsus 7 mg tablet 7 mg PO DAILY metformin 500 mg tablet extended release 24 hr 1,000 mg PO BID Discontinued prednisone 20 mg tablet 20 mg PO DAILY 4 Days Qty: 4 0RF Discharge Orders: Discharge Order (Routine); Ordered 03/02/24 Ordered By: Padmini Aj/Other Patient Handouts: Managing Type 2 Diabetes, Anatomy of a Normal Spine, ED Herniated Intervertebral Disk Admission Data Admit Date/Time: 02/29/24 17:41 Attending Provider: Jean Brennan Admit Provider: Wily Tineo Primary Care Provider: Rabia Mcneil Other Providers: Wily Tineo; Doug Christie; Divine Scott; [facility] Fax Other Interventions: Discharge Summary Assessment (RN) Last Done: 03/02/24 10:17 Hospital Stay Data Consultations 02/27/24 16:30 ED Decision to Admit Stat 02/28/24 09:00 Consult Orthopedic Spine Surgery Routine 02/28/24 10:46 Consult Pain Management Routine Diagnostic Imagining Performed 02/27/24 12:45 MR lumbar spine wo con Stat Pending Results Patient Have Any Pending Studies at Discharge: No Discharge Instructions Given to Patient (Per Discharging Provider) Mr. Fair, Gunnar were recently hospitalized for left hip pain with radiation down your leg. You were evaluated by our orthopedic spine doctor who recommended pain management consultation. You are to have an injection with them today, 03/02. Please see recommendations below regarding your discharge. 1. Please use oxycodone 10mg every 6 hours as needed for pain. 2. Please take Gabapentin 200mg 3 times daily. 3. Please use Baclofen 10mg twice daily. 4. Please take Tylenol 1000mg every 8 hours. 5. The remainder of your medications may be resumed outpatient. If you develop any worsening pain, loss of bowel or bladder function, chest pain, or shortness of breath please report back to the ER for further care. Sincerely, Padmini Hebert PA-C Total Time Total Time Spent Total Time Spent (In Minutes): 45 Total Time Includes: Examination of the Patient, Discharge Planning, Medication Reconciliation and Communication With Other Providers Coding Level of Care Code 28275 INP/OBS DISCH >30 MIN Diagnoses Acute left lumbar radiculopathy M54.16 Diabetes mellitus E11.9 Hypertension I10 Aneurysm of abdominal aorta I71.4
[2024-03-02] MEDS: LANTUS PER UNIT CHARGE SC SCH (11:49)
== END 2024-03-02 11:53 | disposition home or self-care (01) | DRG 552 ==
LOC: ED 12:01 → EDINP 12:01 → SUATTDRO 16:52 → 3N 19:49 → SUATTDRO 02-29 17:41 → 3N 03-01 21:15
DX: E11.9 Type 2 diabetes mellitus without complications; Z87.891 Personal history of nicotine dependence; K21.9 Gastro-esophageal reflux disease without esophagitis; I71.40 Abdominal aortic aneurysm, without rupture, unspecified; Z79.84 Long term (current) use of oral hypoglycemic drugs; N40.0 Benign prostatic hyperplasia without lower urinary tract symptoms; Z79.85 Long-term (current) use of injectable non-insulin antidiabetic drugs; Z79.899 Other long term (current) drug therapy; M51.16 Intervertebral disc disorders with radiculopathy, lumbar region; I10 Essential (primary) hypertension; M51.17 Intervertebral disc disorders with radiculopathy, lumbosacral region

== ENCOUNTER 2024-06-02 06:03 | Inpatient (IN) ==
--- NOTE | 2024-05-07 11:05 | PAT Medication Instructions ---
Medication Instructions Date of Service May 07, 2024 Home Medications Medication Instructions Recorded sildenafil 100 mg tablet 100 mg PO DAILY PRN sexual 02/18/24 activity #10 tabs baclofen 10 mg tablet 10 mg PO BID #30 tabs 03/02/24 gabapentin 100 mg capsule 200 mg (2 x 100 mg) PO TID #180 03/30/24 caps atorvastatin 40 mg tablet 40 mg PO QAM finasteride 5 mg tablet 5 mg PO QAM sildenafil 100 mg tablet 100 mg PO DAILY PRN sexual activity metformin 500 mg tablet,extended release 24 hr 1,000 mg PO BID pantoprazole 20 mg tablet,delayed release (Protonix) 20 mg PO BID semaglutide 7 mg tablet (Rybelsus) 7 mg PO QAM baclofen 10 mg tablet 10 mg PO BID gabapentin 100 mg capsule 200 mg (2 x 100 mg) PO TID lisinopril 10 mg tablet 10 mg PO QAM oxycodone 5 mg tablet 5 - 10 mg PO Q6 PRN pain (scale score 7-10) DO NOT take the morning of surgery sildenafil 100 mg tablet 100 mg PO DAILY PRN sexual activity metformin 500 mg tablet,extended release 24 hr 1,000 mg PO BID semaglutide 7 mg tablet (Rybelsus) 7 mg PO QAM lisinopril 10 mg tablet 10 mg PO QAM Take morning of surgery With a small sip of water, OTHERWISE NOTHING TO EAT OR DRINK AFTER MIDNIGHT: atorvastatin 40 mg tablet 40 mg PO QAM finasteride 5 mg tablet 5 mg PO QAM pantoprazole 20 mg tablet,delayed release (Protonix) 20 mg PO BID baclofen 10 mg tablet 10 mg PO BID gabapentin 100 mg capsule 200 mg (2 x 100 mg) PO TID oxycodone 5 mg tablet 5 - 10 mg PO Q6 PRN pain (scale score 7-10) (if needed) Take evening before surgery metformin 500 mg tablet,extended release 24 hr 1,000 mg PO BID pantoprazole 20 mg tablet,delayed release (Protonix) 20 mg PO BID baclofen 10 mg tablet 10 mg PO BID gabapentin 100 mg capsule 200 mg (2 x 100 mg) PO TID oxycodone 5 mg tablet 5 - 10 mg PO Q6 PRN pain (scale score 7-10) (if needed) Other Notes If you have any questions please call us at [phone] or [phone] or [phone] or [phone]
--- NOTE | 2024-05-12 11:08 | Anesthesiology Consultation ---
Date of Service May 12, 2024 Assessment & Plan (1) Encounter for pre-operative examination: - Check BSG DOS - Infectious disease screening: Per assessment on 05/12/24- No known recent infectious disease contacts or current infectious disease symptoms. - Patient acceptable risk for surgery pending surgeon-ordered PCP preop evaluation ([facility] Dr. Cottrell/Dr. Mcneil, appt 05/14). Chart Review Chart Review: Patient seen in Pre Admission Testing Teaching & Discussion Pre-Anesthesia Teaching/Discussion Notes: Instructed NPO after midnight before surgery,except medications with 15 cc of water. Medication instructions provided according to the PAT guidelines. History Surgery Operation Date: 06/02/24 10:35 Proposed Procedures p L5-S1 Decompression and Fusion with Spinal Cord Monitoring - Doug Christie DO Height/Weight Height: 5 ft 10.5 in Weight: 86.9 kg Allergies Allergy/AdvReac Type Severity Reaction Status Date / Time No Known Allergies Allergy Verified 05/06/24 11:43 Medications Home Medications Medication Instructions Recorded Confirmed Last Taken atorvastatin 40 mg tablet 40 mg PO QAM 08/21/18 05/06/24 07/28/22 08:00 finasteride 5 mg tablet 5 mg PO QAM 09/07/20 05/06/24 07/28/22 08:00 sildenafil 100 mg tablet 100 mg PO DAILY PRN sexual 02/18/24 05/06/24 Unknown activity #10 tabs metformin 500 mg tablet,extended 1,000 mg PO BID 02/27/24 05/06/24 Unknown release 24 hr pantoprazole 20 mg tablet,delayed 20 mg PO BID 02/27/24 05/06/24 Unknown release (Protonix) semaglutide 7 mg tablet (Rybelsus) 7 mg PO QAM 02/27/24 05/06/24 Unknown baclofen 10 mg tablet 10 mg PO BID #30 tabs 03/02/24 05/06/24 Unknown gabapentin 100 mg capsule 200 mg (2 x 100 mg) PO TID #180 03/30/24 05/06/24 Unknown caps lisinopril 10 mg tablet 10 mg PO QAM 05/06/24 05/06/24 Unknown oxycodone 5 mg tablet 5 - 10 mg PO Q6 PRN pain (scale 05/06/24 05/06/24 Unknown score 7-10) Past Medical History Medical History Aneurysm of abdominal aorta PCP monitoring 3.8cm per 02/2024 CTS BPH (benign prostatic hyperplasia) Bulging lumbar disc Diabetes mellitus, type 2 NIDDM Hiatal hernia Hyperlipidemia Lumbar radiculopathy Thoracic spine fracture T7-8 (2013), medically managed, no surgery Exercise / Class Metabolic Activity II 4-5 Yardwork/Stairs/Walk up hill (one FS: No CP, no SOB) Past Family History Family History Father Prostate cancer Hypertension Brother Prostate cancer Mother Hypertension Diabetes Sister Diabetes Other No family history of adverse response to anesthesia Past Surgical History Surgical History H/O colonoscopy History of bilateral inguinal hernia repair ~2012 [place] [place] History of esophagogastroduodenoscopy (EGD) History of left inguinal hernia repair Left Open Recurrent Inguinal Hernia Repair With Mesh Dr. Moy (2020) History of prostate surgery Greenlight TURP (08/27/18): LMA#5 at [facility] History of tooth extraction Upper/Lower Dentures Hx of bilateral cataract extraction Status post epidural steroid injection [facility] [place] Pain Clinic Past Anesthesia History No Hx of Anesthesia Complications and No Family Hx of Anesthesia Complications History of PONV No Hx of PONV and No Hx of Motion Sickness Social History Smoking Status: Former smoker tobacco type: cigarettes Do You Dip or Chew Tobacco: No Smoking End Date: 2020 (Hx 3 PPD x 50 days) Hx Alcohol Use: Yes Alcohol type: beer alcohol intake frequency: a few times a week Hx Substance Use: No substance use type: does not use Review of Systems Patient denies chest pain, shortness of breath, dyspnea on exertion, fever, chills, cough, wheezing, palpitations. Physical Exam Vital Signs BP 166/77 P 85 TEMP 98.2 SP02 96%RA RESP 16 Physical Full cervical extension range of motion. Full TMJ range of motion. TMD 3 finger breaths Mallampati Score I Dentition: upper/lower full dentures Lungs: clear throughout to auscultation Cardiac: regular rate and rhythm, no murmurs noted Spine: normal Carotid arteries: negative bruit Extremities: no LE edema Lab Results Anesthesia Preop Results Results Anesthesia Widget: WBC 5.37 K/ul (4.8-10.8) 05/12/24 Hgb 12.3 g/dl (14.0-18.0) L 05/12/24 Hct 38.3 % (42.0-52.0) L 05/12/24 Plt 269 K/uL (130-400) 05/12/24 Na 135 mmol/L (136-145) L 05/12/24 K 4.2 mmol/L (3.5-5.1) 05/12/24 Cl 102 mmol/L (98-107) 05/12/24 CO2 27 mmol/L (21-32) 05/12/24 BUN 11 mg/dl (6-23) 05/12/24 Creat 0.88 mg/dl (0.6-1.4) 05/12/24 Glucose Level 255 mg/dl (70-99(Fasting)) H 05/12/24 PT 10.0 Seconds (9.0-12.0) 05/12/24 PTT 26 Seconds (21-31) 05/12/24 INR 0.9 (0.9-1.1) 05/12/24 HA1c 9.1 % (4.5-5.6) H 05/12/24 Urine Color Yellow 05/12/24 Urine Appearance Clear (Clear) 05/12/24 Urine pH 5.0 (4.5-7.5) 05/12/24 Urine Specific [place] 1.004 (1.000-1.030) 05/12/24 Urine Protein Negative (Negative) 05/12/24 Urine Glucose (UA) 1+ (Negative) H 05/12/24 Urine Ketones Negative (Negative) 05/12/24 Urine Blood Negative (Negative) 05/12/24 Urine Nitrite Negative (Negative) 05/12/24 Urine Bilirubin Negative (Negative) 05/12/24 Urine Urobilinogen Negative (Negative) 05/12/24 Urine Leukocyte Esterase Negative (Negative) 05/12/24 Blood Type A Negative 05/12/24 Antibody Screen NEGATIVE 05/12/24 Testing Laboratory Results Surgeon's office made aware of elevated glucose/A1C* Electrocardiogram Date: 05/12/24 NSR at 75bpm. "Normal ECG" No significant change compared to 09/11/2020 per medical detail representative comparison. Poor data quality. Chest X-Ray Date: 05/12/24 IMPRESSION: No active cardiopulmonary disease. No other abnormalities noted. Degenerative changes in the thoracic spine.
[2024-06-02] MEDS: LACTATED RINGER'S 1,000 ML IV SCH (06:40)
[2024-06-02] MEDS: LR 60ML/HR IV SCH (06:46)
[2024-06-02] MEDS: ACETAMINOPHEN 500 MG TAB PO SCH (06:47)
[2024-06-02] MEDS: GABAPENTIN 300 MG CAP PO SCH (06:47)
[2024-06-02] MEDS: CeleBREX 200 MG CAP PO SCH (06:47)
[2024-06-02] MEDS ORDERED: ROCURONIUM BROMIDE 10 MG/ML 5 ML VIAL IV ONE ×2 (07:05→08:01)
[2024-06-02] MEDS ORDERED: DEXAMETHASONE SOD INJ 4 MG/ML VIAL ONE (07:05)
[2024-06-02] MEDS ORDERED: MIDAZOLAM HCL 1 MG/ML 2ML VIAL ONE (07:05)
[2024-06-02] MEDS ORDERED: PROPOFOL IV EMULSION 10 MG/ML 20 ML VIAL IV ONE (07:05)
[2024-06-02] MEDS ORDERED: fentaNYL citrate PF 100 MCG/2 ML VIAL ONE (07:05)
[2024-06-02] MEDS ORDERED: ONDANSETRON INJ 2 MG/ML 2 ML VIAL ONE (07:05)
[2024-06-02] MEDS ORDERED: LIDOCAINE 2% 2 ML VIAL/AMP(20MG/ML) INFIL ONE ×2 (07:05)
--- NOTE | 2024-06-02 07:38 | History & Physical Bridge Note ---
Date of Service June 02, 2024 History & Physical Bridge Note I have examined the patient, reviewed the History & Physical and in the interval since the performance of the History & Physical I have noted the following changes of clinical significance: no changes noted
--- NOTE | 2024-06-02 07:39 | History & Physical Report ---
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 Allergies Allergy/AdvReac Type Severity Reaction Status Date / Time No Known Allergies Allergy Verified 06/02/24 06:33 Home Medications Medication Instructions Recorded Confirmed Type atorvastatin 40 mg tablet 40 mg PO QPM 08/21/18 06/02/24 History finasteride 5 mg tablet 5 mg PO QAM 09/07/20 06/02/24 History sildenafil 100 mg tablet 100 mg PO DAILY PRN sexual 02/18/24 06/02/24 Rx activity #10 tabs metformin 500 mg tablet,extended 1,000 mg PO BID 02/27/24 06/02/24 History release 24 hr pantoprazole 20 mg tablet,delayed 20 mg PO BID 02/27/24 06/02/24 History release (Protonix) semaglutide 7 mg tablet (Rybelsus) 7 mg PO QAM 02/27/24 06/02/24 History baclofen 10 mg tablet 10 mg PO BID #30 tabs 03/02/24 06/02/24 Rx gabapentin 100 mg capsule 200 mg (2 x 100 mg) PO TID #180 03/30/24 06/02/24 Rx caps lisinopril 10 mg tablet 10 mg PO QAM 05/06/24 06/02/24 History oxycodone 5 mg tablet 5 - 10 mg PO Q6 PRN pain (scale 05/06/24 06/02/24 History score 7-10) Past Med/Surg History Problem List (Updated 06/02/24 @ 07:39 by Doug Christie DO) 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 Bulging lumbar disc Lumbar disc herniation Acute left lumbar radiculopathy (Acute) Groin lump Erectile dysfunction GERD (gastroesophageal reflux disease) Recurrent left inguinal hernia BPH with obstruction/lower urinary tract symptoms Diabetes mellitus NIDDM Elevated PSA Gross hematuria Retention of urine Encounter for pre-operative examination Hypertension Aneurysm of abdominal aorta (under annual surveillance by PCP) Medical History Aneurysm of abdominal aorta PCP monitoring 3.8cm per 02/2024 CTS BPH (benign prostatic hyperplasia) Bulging lumbar disc Diabetes mellitus, type 2 NIDDM Hiatal hernia Hyperlipidemia Lumbar radiculopathy Thoracic spine fracture T7-8 (2013), medically managed, no surgery Surgical History H/O colonoscopy History of bilateral inguinal hernia repair ~2012 ([facility] [place] History of esophagogastroduodenoscopy (EGD) History of left inguinal hernia repair Left Open Recurrent Inguinal Hernia Repair With Mesh Dr. Moy (2020) History of prostate surgery Greenlight TURP (08/27/18): LMA#5 at [facility] History of tooth extraction Upper/Lower Dentures Hx of bilateral cataract extraction Status post epidural steroid injection [facility] [place] Pain Clinic Family History Father Prostate cancer Hypertension Brother Prostate cancer Mother Hypertension Diabetes Sister Diabetes Other No family history of adverse response to anesthesia Social History Smoking Status: Former smoker Tobacco Type: Cigarettes packs per day: 1.5; Smoking End Date: 2020 (Hx 3 PPD x 50 days); Second Hand Exposure: No; Do You Dip or Chew Tobacco: No; Tobacco Cessation Education Requested by Patient: No Hx Alcohol Use: Yes Alcohol type: beer Hx Substance Use: No Preferred Language: [place] Communication Ability: Effective Hospital Director Required: No Beliefs That Will Affect Care: None marital status: Current Living Situation: Spouse current occupational status: employed current occupation: [employer] Other Information That Helps Us Care for You: No Feels Safe at Home: Yes Safety Concerns: Feels Safe At This Time Assistive Devices: Denture - Upper and Denture - Lower Physical Exam Physical Exam: Patient alert and oriented heart regular rhythm Lungs clear Results & Data Results & Data Vital Signs (Past 12 Hours) Vital Signs Temp Pulse Resp BP Pulse Ox O2 Del Method 06/02/24 06:31 36.5 C 89 20 140/79 97 Room Air
[2024-06-02] MEDS: ceFAZolin 2000MG 2,000 MG/15 ML SYR IV SCH ×2 (07:45→15:49)
[2024-06-02] MEDS ORDERED: PHENYLEPHRINE 100MCG/ML 5ML SYR ONE (07:59)
[2024-06-02] MEDS ORDERED: SUGAMMADEX SODIUM 200 MG/2 ML VIAL IV ONE (08:02)
[2024-06-02] MEDS ORDERED: PHENYLEPHRINE HCL 10 MG/ML VIAL ONE (08:47)
[2024-06-02] MEDS: BUPIVACAINE/EPINEPHRINE 0.25% 1:200,000 30 ML VIAL ONE (08:53)
[2024-06-02] MEDS: ceFAZolin 330 MG/ML 1 GM VIAL ONE (08:54)
[2024-06-02] MEDS: FLOSEAL HEMOSTATIC MATRIX 10ML TOP ONE (08:57)
--- NOTE | 2024-06-02 09:10 | Fluoroscopy Report ---
FL lumbar spine 2-3V CLINICAL HISTORY: L5-S1 DECOMP/FUSION COMPARISON STUDY: None FLUOROSCOPY TIME: 20 seconds FLUOROSCOPY IMAGES: 3 EXPOSURE DOSE: 18 mGy FINDINGS: Fluoroscopy was provided for L5-S1 metallic fusion. IMPRESSION: Intraoperative fluoroscopy. ACT 112: Negative or not required by law. Electronically signed by: Martell Palacios M.D. 06/02/2024 9:08 AM
--- NOTE | 2024-06-02 09:11 | Operative Report ---
Post Operative Report Pre & Post Diagnosis Operation Date: 06/02/24 07:45 Pre-Op Diagnosis: #1 lumbar spondylosis with radiculopathy #2 lumbar spinal stenosis Post-Op Diagnosis: Same I identified the patient and participated in the time-out.: Yes Procedure Operation Date: 06/02/24 07:45 Actual Procedures #1 lumbar decompression with bilateral medial facetectomies and foraminotomies L4-L5 L5-S1. #2 posterior spinal fusion L5-S1. #3 placed posterior instrumentation L5-S1. #4 interbody fusion L5-S1. #5 placement of Spira 12 x 26 mm x 2 at L5-S1. #6 placement locally harvested morselized autograft and posterior gutters. #7 placement infuse collagen sponge combined with Koros in the posterior lateral gutters and os design interbody space. #8 application of versa wrap over the exposed dura. Surgeon Doug Christie DO Flat Lock Machine Operator Pam Regan Estimated Blood Loss 50 Findings Consistent with Post-Op Diagnosis Specimens None Indications This is a 61-year-old male presents publish diagnosis of failing course of nonoperative care is here for surgical invention. Description of Procedure Patient was met with identified informed consent obtained. Patient was then taken to the operative suite underwent intubation placed prone position the Naresh table top Charlie frame. All bony promises well-padded eyes inspected to ensure no external pressure placed upon the. This point lumbar spine was prepped and draped in normal sterile fashion. Sharp dissection with the ass istance of Bovie cautery from down to and exposing the lamina transverse processes of L5 and sacral ala bilaterally. From caudal cephalad fashion complete laminectomy of L5 was performed including bilateral medial facetectomies and foraminotomies addressing all neural compression. This is followed by partial laminectomy of L4 with bilateral medial facetectomies to address all subarticular stenosis. Pedicle screws were then placed in L5 and S1 level bilaterally with the assistance of fluoroscopy in the process sabrina placed. By way of transforaminal approach on the left discectomy of L5-S1 was performed endplates corrected to subcortical the bone and a 12 x 26 mm spiral cage filled with os design bone graft apposition. Then proceeded the right transforaminal region. Again discectomy performed. Endplates guided to subcortical bleeding bone and a second 12 x 26 mm spiral cage filled with os design bone graft tapped in position. The rods were then locked into final position bilaterally. The transverse processes of L5 and sacral ala burred to subcortical bleeding bone. Infuse collagen sponge, with Koros and local autograft placed in the posterior gutters. 15 round NEGRITA drain inserted. Versa wrap placed over the exposed dura. Incision was then closed with 1 Vicryl the fascia 2-0 Vicryl subcutaneously and 4 Monocryl for final skin closure. Steri-Strips sterile dressing placed. Patient waken taken to PACU in stable condition. Please note spinal cord monitoring was utilized at the procedure no changes noted. Pam Regan was present at the entire surgery involved the patient positioning complex portion of the surgery and final skin closure. I attest to the content of the Intraoperative Record and any orders documented therein. Any exceptions are noted below.
--- OUTSIDE RECORDS SUMMARY | 2024-06-02 09:17 | External Medical Summary | Continuity of Care Document ---
Author Name Unknown Organization [facility] [id number] [place] [phone] Care Team Providers Care Digital Community Manager Name Role Phone Rabia Mcneil Primary Care Physician [phone] [facility] [id number] Date(s): 05/14/24 - 05/14/24 [facility] [address] [address] [place] [phone] Encounter Diagnosis Pre-operative exam(Discharge Diagnosis) - 05/14/24 Discharge Disposition: Home or Self Care Attending Physician: MD Jordan Christopher Encounter Type: Clinic Allergies, Adverse Reactions, Alerts No Known Allergies Immunizations Given and Recorded Vaccine Date Status Refusal Reason pneumococcal 20-valent conjugate vaccine 09/11/22 Given SARS-CoV-2 mRNA (Pfizer 12+) bivalent 1 02/11/22 R ecorded influenza virus vaccine, inactivated 12/31/21 Give n influenza virus vaccine, inactivated 03/23/20 Give n influenza virus vaccine, inactivated 02/17/19 Give n influenza virus vaccine, inactivated 05/08/16 Give n influenza virus vaccine, inactivated 11/16/14 Give n influenza virus vaccine, inactivated 11/29/13 Give n influenza virus vaccine, inactivated 2 10/27/12 Re corded SARS-CoV-2 mRNA (remdgxrldfg-ckxw-zuy) 3 07/15/21 Recorded SARS-CoV-2 (COVID-19) mRNA BNT-162b2 vax 4 12/22/20 Recorded SARS-CoV-2 (COVID-19) mRNA BNT-162b2 vax 5 05/05/20 Recorded SARS-CoV-2 (COVID-19) mRNA BNT-162b2 vax 6 04/14/20 Recorded zoster vaccine, inactivated 07/08/19 Given zoster vaccine, inactivated 03/16/19 Given tetanus/diphtheria/pertuss, acel (Tdap) 05/08/16 G iven tetanus/diphtheria/pertuss, acel (Tdap) 11/26/12 G iven pneumococcal 23-valent vaccine 11/16/14 Given pneumococcal 23-valent vaccine 07/07/13 Given 1Result Comment: 2022-02-18: Historical information-source unspecified 2Result Comment: [11/26/2012] Pt rec'd @ [facility] 3Result Comment: 2021-12-31: Historical information-source unspecified 4Result Comment: 2021-12-31: Historical information-source unspecified 5Result Comment: 2021-12-31: Historical information-source unspecified 6Result Comment: 2021-12-31: Historical information-source unspecified Mental Status 05/14/24 Barriers to Learning one year None evide nt Mandatory Health Literacy Documentation Yes Health Literacy Communication Barriers N ever Primary Language Divehi Problem List Condition Confirmation Course Effective Dates Status H ealth Status Informant AAA (abdominal aortic aneurysm) Confirmed Active Bilateral inguinal hernia (BIH) Confirmed Active Callus Confirmed Active History of tobacco use Confirmed Active GERD (gastroesophageal reflux disease) Confirmed Active Hyperlipidemia Confirmed Active Hypertension Confirmed Active Tinea unguium Confirmed Active Left elbow pain Confirmed Active Diabetes mellitus, type 2 Confirmed Active Diagnosis Diagnosis Type Effective Dates Health Status Cl inical Service Informant Pre-operative exam Discharge Diagnosis 05/14/24 Non-Specified Procedures Procedure Date Related Diagnosis Body Site Status Colonoscopy 1, 2, 3 04/16/23 Compl eted Upper GI (gastrointestinal) endoscopy 4 07/29/22 Completed Doppler ultrasonography of aorta 5 07/10/[address] 6 04/12/21 Completed Colonoscopy 7, 8 04/13/20 Complete d Pathology report 9 04/13/20 Comple filiberto Low dose CT of chest without contrast 10 03/30/20 Completed US ABDL AORTA SCREEN AAA 11 09/20/[address] of lungs 12 04/07/[address] 13 01/21/18 Completed MRI 14 10/25/[address] 15 10/02/[address] of abdomen and pelvis 16 10/02/16 Completed Comprehensive eye examination 17 05/21/13 Completed bilateral inguinal hernia repair 04/30/13 Completed Colonoscopy abnormal 18 01/13/13 C ompleted Cataract Completed Surgery 19 Completed 1Repeat colonoscopy in 3 years because of number of polyps even though called hyperplastic. 2- One 3 mm polyp at 40 cm proximal to the anus, removed with a cold biopsy forceps. Resected and retrieved. - Four 2 to 3 mm polyps in the rectum, removed with a cold biopsy forceps. Resected and retrieved. - Two 3 to 6 mm polyps in the rectum, removed with a cold snare. Resected and retrieved. - Internal hemorrhoids. - The examination was otherwise normal on direct and retroflexion views. 3A) 40cm Hyperplastic polyp. B) Rectum Hyperplastic polyps. C) Rectum Hyperplastic polyps. 4Impression: - Normal esophagus - Small hiatal hernia - Normal examined duodenum - No specimens collected 5A 3.5 x 3.4 cm distal abdominal aortic aneurysm 6Lung Cancer Screening CT lung screening (low dose) CLINICAL HISTORY: HX OF TOBACCO USE COMPARISON STUDY: Lung screening CT is January 21, 2018 and March 30, 2020. CT DOSE: 90.26 mGy.cm TECHNIQUE: Low-dose helical CT was acquired without intravenous contrast from lung apices to bases and reconstructed at 2.5 mm every 2 mm. Automated exposure control was utilized for the study. A dose lowering technique was utilized adhering to the principles of ALARA. FINDINGS: No enlarged axillary, mediastinal or hilar lymph nodes are present. Size of the heart is normal. Coronary artery calcification is present. No pericardial effusion is present. No pneumothorax or pleural effusion is noted. There is no consolidation to suggest pneumonia. Note is made of upper lobe predominant paraseptal and centrilobular emphysema. This appears similar to prior exam. Several calcified nodules within the lungs are unchanged. Multiple small solid noncalcified pulmonary nodules are unchanged. A 3 mm groundglass left upper lobe nodule is unchanged, shown on axial image 152. No new nodules are present. No acute fracture or suspicious lesion within visualized portions of the bony defect. Bilateral hypodense adrenal nodules are unchanged since abdominal CT of August 11, 2018. These reflect hemangiomas. Multiple hepatic lesions are also unchanged since that exam and are likely benign. IMPRESSION: No change in multiple small pulmonary nodules. No suspicious pulmonary nodules. Lung RADS Category: 2 - Benign appearance or behavior - Nodules with a very low likelihood of becoming a clinically active cancer due to size or lack of growth. Continue annual screening. 7COLO to cecum, 14 rectal polyps 2-4 mm CF 814 - hyperplastic.. Repeat Colonoscopy 3 yrs. (2023) . F/u as needed 9Diagnosis 1. Rectum polyps, biopsy -Hyperplastic polyps 10Emphysema without acute intrathoracic abnormality. Low suspicion bilateral pulmonary nodules measuring up to 3mm appear stable dating back to 2018. Moderate coronary artery calcifications. Indeterminate ill-defined hypodense liver lesions measuring over 4cm are redemonstrated. 11Slight increase in size in the 3.8 x 3.2cm distal abdominal aortic aneurysm. 12IMPRESSION: 1) No significant change compared to prior studies 2) A Few scattered subcentimeter nodules measure up to 3 mm are not significant changed. No new pulmonary nodules identified 3) Ill defined hypodense liver lesions measuring up to 4.6 cm. These are incompletely characterizedon this noncontrast study. Dedicated liver MRI can be used for further characterization. 4) Mild emphysema 5) Moderate calcified plaque within the left coronary artery. 13Mild to moderate upper lung zone predominant centrilobular and paraseptal emphysema. Several low suspicion solid nodules about the bilateral lungs measuring up to 3mm. Prior granulomatous disease. Multiple ill defined hypodense lesions about the liver measuring up to 4.6cm. Could be further evaluated with CT or MRI liver mas protocol. See report for more details. 141. Multiple hepatic hemangiomas, requiring no specific follow- up 15moderate bullous disease. A calcified granuloma is noted in the left apex. A 3 mm noncalcified nodule is also incidentally noted in the left apex. 161. Multiple large liver lesions, most likely representing hemangiomas. This could be confirmed by abdominal MR on a routine basis. 2. Moderate bullous disease in the lungs. 3mm left upper love pulmonary nodule. 3. Enlarged prostrate 4. Mild abdominal aortic aneurysm measuring 3.2 cm 17no diabetic retinopathy 18tubular adenoma, repeat in 3 yrs 19lump removed from jaw and ear Vital Signs Most recent to oldest [Reference Range]: 1 Patient Weight 85.4 kg (05/14/24 1:00 PM) Temperature [36.5-37.9 DegC] 36.9 DegC (05/14/24 1:00 PM) Blood Pressure 120/84mmHg (05/14/24 1:00 PM) BP Location # 1 Left Arm (05/14/24 1:00 PM) Social History Social History Type Response Smoking Status Former Smoker, quit > 1 yr Sex Male Sex Representation Male (finding) Patient Care team information Care Team Personnel Name: MD Carlos, Randy Hager Position: Physician - Family Med Member Role: Lifetime Relationship Address: [address] [place] [address] Telecom: [phone] Name: DO Mcneil Paige M Position: Resident Member Role: Primary Care Provider Address: [address] [place] [address] Telecom: [phone] Care Team Related Persons Name: CLEM CANO Insurance Providers Guarantor name: JAYLYN BUENO Health Plan Information #: 2 Payer: [facility] Member Number: [id number] Policy Number: NA Group Number: [id number] Health Plan Information #: 1 Payer: MEDICARE Member Number: [id number] Policy Number: NA Group Number: [id number]
[2024-06-02] MEDS ORDERED: ATROPINE SULFATE 0.1 MG/ML 10ML SYR IV PRN (09:30)
[2024-06-02] MEDS ORDERED: ONDANSETRON INJ 2 MG/ML 2 ML VIAL IV PRN ×2 (09:30→11:49)
[2024-06-02] MEDS: fentaNYL citrate PF 100 MCG/2 ML VIAL IV PRN (09:30)
[2024-06-02] MEDS ORDERED: ePHEDrine sulfate 50 MG/ML AMP IV PRN (09:30)
[2024-06-02] MEDS ORDERED: DEXAMETHASONE SOD INJ 4 MG/ML VIAL IV PRN (09:30)
[2024-06-02] MEDS: KETOROLAC 30 MG/ML VIAL IV PRN (09:47)
[2024-06-02] MEDS: HYDROmorphone INJ 2 MG/ML SYR/VIAL IV PRN (09:50)
--- NOTE | 2024-06-02 10:07 | Anesthesiology Progress Note ---
Date of Service June 02, 2024 Anesthesia Post Procedure Vital Signs Vital Signs: Temp Pulse Resp BP Pulse Ox O2 Del Method O2 Flow Rate 06/02/24 09:55 80 14 134/79 96 Nasal Cannula 2 06/02/24 09:45 90 12 121/79 94 Nasal Cannula 3 06/02/24 09:35 90 17 124/72 96 Nasal Cannula 4 06/02/24 09:25 100 H 11 L 121/68 99 Oxymask 4 06/02/24 09:19 36.6 C 94 H 15 121/68 98 Oxymask 6 06/02/24 06:31 36.5 C 89 20 140/79 97 Room Air Pain Intensity Left Hip: Pain Intensity: 0 Back: Pain Intensity: 2 Transfer of Care Handoff Completed per policy Notes Mental Status: alert / awake / arousable and participated in evaluation Patient Amnestic to Procedure: Yes Nausea / Vomiting: adequately controlled Pain: adequately controlled Airway Patency, RR, SpO2: stable & adequate BP & HR: stable & adequate Hydration State: stable & adequate Anesthetic Complications: no major complications apparent and Pt Satisfied with anesthetic care
[2024-06-02] MEDS ORDERED: ALUMINUM/MAGNESIUM SUSP 30 ML UDC PO PRN (11:49)
[2024-06-02] MEDS ORDERED: DO NOT ADMINISTER PNEUMOCOCCAL VACCINE PRN (11:49)
[2024-06-02] MEDS ORDERED: DO NOT ADMINISTER FLU VACCINE PRN (11:49)
[2024-06-02] MEDS ORDERED: bisacodyL 10 MG SUPP PR PRN (11:49)
[2024-06-02] MEDS ORDERED: oxyCODONE HCL IR 5 MG TAB (IMMEDIATE RELEASE) PO PRN (11:49)
[2024-06-02] MEDS ORDERED: PROMETHAZINE 12.5 MG/50.5 ML BAG IV PRN (11:49)
[2024-06-02] MEDS ORDERED: ACETAMINOPHEN 1,000 MG/100 ML VIAL IV PRN (11:49)
[2024-06-02] MEDS ORDERED: traMADol HCL 50 MG TABLET PO PRN (11:49)
[2024-06-02] MEDS ORDERED: diphenhydrAMINE Capsule 25 MG CAP PO PRN (11:49)
[2024-06-02] MEDS ORDERED: HYDROmorphone INJ 1 MG/ML SYRINGE IV PRN (11:49)
[2024-06-02] MEDS ORDERED: LORazepam 2 MG/1 ML VIAL IV PRN (11:49)
[2024-06-02] MEDS ORDERED: LORazepam 0.5 MG TAB PO PRN (11:49)
[2024-06-02] MEDS ORDERED: FAMOTIDINE 20 MG TAB PO PRN (11:49)
[2024-06-02] MEDS ORDERED: MAGNESIUM HYDROXIDE SUSP 30 ML UDC PO PRN (11:49)
[2024-06-02] MEDS ORDERED: PHARMACY GLYCEMIC MGMT CONSULT PRN (11:49)
[2024-06-02] MEDS ORDERED: hydrOXYzine HCl 25 MG TAB PO PRN (11:49)
[2024-06-02] MEDS ORDERED: METOCLOPRAMIDE HCL INJ 5 MG/ML 2 ML VIAL IV PRN (11:49)
[2024-06-02] MEDS ORDERED: SOD PHOSPHATE/SOD BIPHOSPHATE ENEMA 132 ML BTL PR PRN (11:49)
[2024-06-02] MEDS ORDERED: HYDROmorphone INJ 0.5 MG/0.5 ML SYR IV PRN (11:49)
[2024-06-02] MEDS ORDERED: NALOXONE HCL 0.4 MG/1 ML VIAL/CARP IV PRN (11:49)
[2024-06-02] MEDS ORDERED: ONDANSETRON 4 MG OD TAB PO PRN (11:49)
[2024-06-02] MEDS: fentaNYL citrate PF 100 MCG/2 ML VIAL ONE (12:00)
[2024-06-02] MEDS: INSULIN ASPART PER UNIT CHARGE SC SCH (13:23)
[2024-06-02] MEDS: GABAPENTIN 100 MG CAP PO SCH (13:45)
--- NOTE | 2024-06-02 13:45 | Hospitalist Consultation ---
Date of Consultation June 02, 2024 Assessment & Plan (1) Diabetes mellitus, type 2: 69-year-old male presents for operative intervention of lumbar radiculopathy. He has a history of suboptimally controlled DM2 as an outpatient currently with BSG within goal parameters on SSI, hypertension well-controlled on lisinopril, hyperlipidemia on atorvastatin, GERD with no recent symptoms well-controlled on PPI, and BPH/LUTS without symptoms on finasteride. We are consulted for postoperative medication management Lumbar radiculopathy S/p operative intervention 06/02/24 Patient reports he has had significant improvement/near complete resolution of his symptoms postoperatively Activity, DVT prophylaxis per primary team Pain adequately controlled, additional analgesics not currently indicated Type II DM Hold home antiglycemic's Goal BSG [id number] Pharmacy glycemic consult following, SSI insulin Postop BSG within goal range Last A1c 9.1%. Rybelsus was doubled to 14 mg as outpt. Continue outpatient follow-up for this and patient is anticipated to start insulin as an outpatient. Currently his glycemic control is adequate on SSI. Abdominal aortic aneurysm Last MRI 02/2024, remains stable at 4.1 cm. Continue surveillance Hypertension Resume lisinopril Hyperlipidemia Resume atorvastatin GERD Continue PPI, 20 mg Protonix twice daily home dosing continued BPH/LUTS Continue finasteride Bladder scan every shift. If retaining, add Flomax and straight cath as needed DVT prophylaxis: SCDs. Chemical prophylaxis held following spinal surgery, transition to chemical prophylaxis when bleeding risk acceptable from surgical standpoint Diet: DM2 CODE STATUS: Full code Disposition: MSO (2) GERD (gastroesophageal reflux disease): (3) Hypertension: (4) BPH with obstruction/lower urinary tract symptoms: History of Present Illness Attending Physician: Doug Christie, History of Present Illness Ike is a pleasant 69-year-old male with a past medical history of DM2, BPH, GERD, and lumbar radiculopathy who presented for lumbar decompression. We are consulted for postoperative medication management. Albino reports he has been in his usual state of health the exception of persistent and worsened radicular pain preoperatively. He reports he is typically able to walk without chest pain, chest pressure shortness of breath or difficulty breathing. Has had radicular pain as noted. Inadequate improvement with epidural injections and baclofen. Swelling presented for surgical intervention. Seen at the bedside postoperative intervention earlier in the day. He reports that while he was having ongoing radicular pain down his leg in the morning his pain has resolved and he feels much better upon awakening postop. He has noticed immediate improvement which he is very happy with. Denies loss of strength. No concerns at time of bedside assessment. He reports his chronic medical issues have been doing well, only recent change is that his diabetic medications (Rybelsus) were recently increased, and will likely start insulin as an outpatient in the near future. No other recent changes. Blood pressure has been well-controlled. Medical History: Reviewed Medications: Reviewed Surgical History: Reviewed Family history: Reviewed Allergies: Reviewed Social History: Reviewed Code Status: Full Allergies Allergy/AdvReac Type Severity Reaction Status Date / Time No Known Allergies Allergy Verified 06/02/24 06:33 Home Medications Medication Instructions Recorded Confirmed Type atorvastatin 40 mg tablet 40 mg PO QPM 08/21/18 06/02/24 History finasteride 5 mg tablet 5 mg PO QAM 09/07/20 06/02/24 History sildenafil 100 mg tablet 100 mg PO DAILY PRN sexual 02/18/24 06/02/24 Rx activity #10 tabs metformin 500 mg tablet,extended 1,000 mg PO BID 02/27/24 06/02/24 History release 24 hr pantoprazole 20 mg tablet,delayed 20 mg PO BID 02/27/24 06/02/24 History release (Protonix) semaglutide 7 mg tablet (Rybelsus) 7 mg PO QAM 02/27/24 06/02/24 History baclofen 10 mg tablet 10 mg PO BID #30 tabs 03/02/24 06/02/24 Rx gabapentin 100 mg capsule 200 mg (2 x 100 mg) PO TID #180 03/30/24 06/02/24 Rx caps lisinopril 10 mg tablet 10 mg PO QAM 05/06/24 06/02/24 History oxycodone 5 mg tablet 5 - 10 mg PO Q6 PRN pain (scale 05/06/24 06/02/24 History score 7-10) oxycodone 5 mg tablet 5 mg PO Q6H PRN pain #30 tabs 06/02/24 Rx tramadol 50 mg tablet 50 mg PO Q6H PRN pain, moderate 06/02/24 Rx #30 tabs Patient History Medical History Aneurysm of abdominal aorta PCP monitoring 3.8cm per 02/2024 CTS BPH (benign prostatic hyperplasia) Bulging lumbar disc Diabetes mellitus, type 2 NIDDM Hiatal hernia Hyperlipidemia Lumbar radiculopathy Thoracic spine fracture T7-8 (2013), medically managed, no surgery Surgical History H/O colonoscopy [place] of [place] [place] History of esophagogastroduodenoscopy (EGD) History of left inguinal hernia repair Left Open Recurrent Inguinal Hernia Repair With Mesh Dr. Moy (2020) History of prostate surgery [facility] (08/27/18): LMA#5 at [facility] History of tooth extraction Upper/Lower Dentures Hx of bilateral cataract extraction Status post epidural steroid injection [facility] Family History Father Prostate cancer Hypertension Brother Prostate cancer Mother Hypertension Diabetes Sister Diabetes Other No family history of adverse response to anesthesia Social History Smoking Status: Former smoker Tobacco Type: Cigarettes packs per day: 1.5; Smoking End Date: 2020 (Hx 3 PPD x 50 days); Second Hand Exposure: No; Do You Dip or Chew Tobacco: No; Tobacco Cessation Education Requested by Patient: No Hx Alcohol Use: Yes Alcohol type: beer Hx Substance Use: No Preferred Language: Turkish Communication Ability: Effective 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 NAD. Cooperative. HEENT: Atraumatic, normocephalic. Vision and hearing grossly intact Pulm: CTAB A&P. -wheezes, -rales, -rhonchi. Symmetrical chest rise. No increased work of breathing. No respiratory distress. Cardiac: RRR, -mrg. Radial pulses intact and symmetrical. Extremities: Sensation intact to soft touch in the lower extremities bilaterally without deficit. Ankle dorsiflexion/plantarflexion/toe 5/5 bilaterally. PT pulses intact bilaterally. Cap refill in the hallux brisk bilaterally. Results & Data Results & Data Vital Signs (Past 12 Hours) Vital Signs Temp Pulse Pulse Resp BP Pulse Ox O2 Del Method 06/02/24 12:35 36.5 C 72 16 112/71 96 Room Air 06/02/24 11:45 36.6 C 81 18 113/69 95 Nasal Cannula 06/02/24 11:35 70 12 99/54 L 95 Nasal Cannula 06/02/24 11:05 69 21 107/65 95 Nasal Cannula 06/02/24 10:50 77 12 108/63 95 Nasal Cannula 06/02/24 10:35 74 13 100/67 95 Nasal Cannula 06/02/24 10:20 70 18 109/73 95 Nasal Cannula 06/02/24 10:05 36.4 C L 82 23 106/79 95 Nasal Cannula 06/02/24 09:55 80 14 134/79 96 Nasal Cannula 06/02/24 09:45 90 12 121/79 94 Nasal Cannula 06/02/24 09:35 90 17 124/72 96 Nasal Cannula 06/02/24 09:25 100 H 11 L 121/68 99 Oxymask 06/02/24 09:19 36.6 C 94 H 15 121/68 98 Oxymask 06/02/24 06:31 36.5 C 89 20 140/79 97 Room Air O2 Flow Rate 06/02/24 12:35 06/02/24 11:45 1 06/02/24 11:35 2 06/02/24 11:05 2 06/02/24 10:50 2 06/02/24 10:35 2 06/02/24 10:20 2 06/02/24 10:05 2 06/02/24 09:55 2 06/02/24 09:45 3 06/02/24 09:35 4 06/02/24 09:25 4 06/02/24 09:19 6 06/02/24 06:31 PG Care Time/CCT Total # of Minutes Spent Total Time Spent with Patient: Total time spent is greater than 50% in coordination of care (as documented) at patient's floor/unit and/or counseling patient: Coding Level of Care Code 08556 IN/OBS CONSULT LVL 4,60M Diagnoses Diabetes mellitus, type 2 E11.9 GERD (gastroesophageal reflux disease) K21.9 Hypertension I10 BPH with obstruction/lower urinary tract symptoms N40.1; N13.8
--- NOTE | 2024-06-02 14:06 | Pharmacy Report ---
Pharmacy Glycemic Short Note 2 - Date of Service June 02, 2024 - Glycemic Short BSG Results (Last 24 hours): 06/02/24 06/02/24 06/02/24 06:27 09:20 11:49 POC Glucose 149 H 145 H 142 H 06/02/24 12:09 POC Glucose 132 H OUTPATIENT ANTIDIABETIC REGIMEN: * Rybelsus 7mg QAM (recently increased to 14mg) * metformin ER 1000mg BID * HbA1c 9.1% 05/12/24 ASSESSMENT: * Ike is a 69 year old male admitted status post spinal decompression/fusion with a history of type 2 diabetes mellitus. Pharmacy has been consulted to assist with glycemic management while inpatient. * Preoperative BSG this AM within goal range, it appears that he did not received preoperative steroids. Will add small basal scale if BSGs elevated this evening with diet. Likely will need some additional basal insulin tomorrow as he has dexamethasone 6mg IV daily x3 days ordered. * NovoLog initiated at a weight based stress of 2, plan to tighten tomorrow with IV steroids. PLAN FOR INPATIENT GLYCEMIC CONTROL: * Hold outpatient oral diabetes medications * Basal insulin * Lantus 0-5 units SQ BID based on BSG (give 5 units if BSG is 180mg/dL or greater) * Bolus insulin * NovoLog per scale ACHS or Q6hrs while NPO * Goal Range: Low 110 mg/dL - High 140 mg/dL * Correction Factor: 30 mg/dL/unit * Nutritional / Prandial insulin per carb ratio of 1 unit per 11 grams CHO consumed
[2024-06-02] MEDS: ACETAMINOPHEN 500 MG TAB PO PRN (19:28)
[2024-06-02] MEDS: BACLOFEN 10 MG TAB PO SCH (20:18)
[2024-06-02] MEDS: DOCUSATE SODIUM/SENNA 50/8.6MG TAB PO SCH (20:18)
[2024-06-02] MEDS: PANTOprazole 40 MG TAB PO SCH (20:19)
[2024-06-02] MEDS: ATORVASTATIN 40 MG TAB PO SCH (20:19)
[2024-06-02] MEDS: LANTUS PER UNIT CHARGE SC ONE (20:29)
[2024-06-03] MEDS: POLYETHYLENE (MIRALAX) 17 GM PACK PO SCH (05:51)
[2024-06-03 07:17] LABS: BUN Creatinine Ratio 12.6 (10-20); Calcium 8.4 mg/dl (8.6-10.3); Creatinine Clr Calc Pharmacy 78.1 ml/min; Potassium 4.4 mmol/L (3.5-5.1)
[2024-06-03 07:30] LABS: Basophils # (auto) 0.02 K/uL (0.00-0.20); Basophils % (auto) 0.4 %; Eosinophils # (auto) 0.13 K/uL (0.00-0.50); Eosinophils % (auto) 2.5 %; Hematocrit (blood only) 33.4 % (42.0-52.0); Hemoglobin 10.6 g/dl (14.0-18.0); Immature Granulocytes # (auto) 0.02 K/uL (0.01-0.20); Immature Granulocytes % (auto) 0.4 %; Lymphocytes # (auto) 0.77 K/uL (1.20-3.40); Mean Corpuscular Hemoglobin 27.2 pg (25.0-34.0); Mean Corpuscular Hgb Conc 31.7 g/dL (32.0-36.0); Mean Corpuscular Volume 85.9 fL (80.0-100.0); Mean Platelet Volume 10.7 fL (9.4-12.4); Monocytes # (auto) 0.39 K/uL (0.11-0.59); Monocytes % (auto) 7.6 %; Neutrophils # (auto) 3.79 K/uL (1.40-6.50); Neutrophils % (auto) 74.1 %; Platelet Count 226 K/uL (130-400); RDW Coefficient of Variation 17.2 % (11.5-14.5); RDW Standard Deviation 53.7 fL (36.4-46.3); Red Blood Count 3.89 M/uL (4.70-6.10); White Blood Count 5.12 K/ul (4.8-10.8)
[2024-06-03] MEDS: LANTUS PER UNIT CHARGE SC SCH (08:24)
[2024-06-03] MEDS: FINASTERIDE 5 MG TAB PO SCH (08:25)
[2024-06-03] MEDS: lisinopril 10 MG TAB PO SCH (08:27)
--- NOTE | 2024-06-03 09:30 | Orthopedic Progress Note ---
Date of Service June 03, 2024 Assessment & Plan (1) 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: Plan: At this time we will continue physical therapy monitor his NEGRITA output hopefully discharge home in the next few days. Admission and Anticipated Discharge Date Admission Date: June 02, 2024 Subjective Back pain controlled leg pain improved Physical Exam Physical Exam: Patient is stable in bed. A 6 strength testing. Is comfortable. Results & Data Vital Signs (Past 12 Hours) Vital Signs Temp Pulse Resp BP Pulse Ox O2 Del Method 06/03/24 07:11 36.6 C 90 16 110/68 95 Room Air 06/03/24 04:07 36.6 C 84 16 108/62 95 Room Air 06/03/24 00:07 36.6 C 84 16 102/51 L 95 Room Air
--- NOTE | 2024-06-03 09:32 | Hospitalist Progress Note ---
Date of Service June 03, 2024 Assessment & Plan (1) Diabetes mellitus, type 2: Plan: 69-year-old male presents for operative intervention of lumbar radiculopathy. He has a history of suboptimally controlled DM2 as an outpatient currently with BSG within goal parameters on SSI, hypertension well-controlled on lisinopril, hyperlipidemia on atorvastatin, GERD with no recent symptoms well-controlled on PPI, and BPH/LUTS without symptoms on finasteride. We are consulted for postoperative medication management Summary: Postoperative intervention of lumbar radiculopathy. Doing well. Symptoms complete resolved. Patient is pending working with PT/OT however is m oving independently with good strength and no pain at time of bedside assessment. NEGRITA drain in place, 25-50cc output serosanguinous today. Lumbar radiculopathy S/p operative intervention 06/02/24 Activity, DVT prophylaxis per primary team No symptoms at time bedside assessment, pain is completely resolved postoperatively Type II DM Hold home antiglycemic's Goal BSG [id number] Pharmacy glycemic consult following, SSI insulin Postop BSG within goal range Last A1c 9.1%. Rybelsus was doubled to 14 mg as outpt. Continue outpatient follow-up for this and patient is anticipated to start insulin as an outpatient. Slightly high fasting BSG today, pharmacy following. Abdominal aortic aneurysm Last MRI 02/2024, remains stable at 4.1 cm. Continue surveillance Hypertension Resume lisinopril Hyperlipidemia Resume atorvastatin GERD Continue PPI, 20 mg Protonix twice daily home dosing continued BPH/LUTS Continue finasteride (2) GERD (gastroesophageal reflux disease): (3) Hypertension: (4) BPH with obstruction/lower urinary tract symptoms: Admission and Anticipated Discharge Date Admission Date: June 02, 2024 Subjective Seen at the bedside. He is laughing talking on the phone just prior to physician assessment. At bedside he reports he feels great, his pain symptoms have completely resolved and he could not be happier with surgery. No fevers chills or sweats. No numbness or tingling. No weakness. Voiding normally. He is eager to work with physical therapy and get out of the hospital. No ongoing concerns Physical Exam Physical Exam: General: A&Ox3. NAD. Cooperative. HEENT: Atraumatic, normocephalic. Vision and hearing grossly intact Pulm: CTAB A&P. -wheezes, -rales, -rhonchi. Symmetrical chest rise. No increased work of breathing. No respiratory distress. Cardiac: RRR, -mrg. Radial pulses intact and symmetrical. Extremities: Sensation intact to soft touch in the lower extremities bilaterally without deficit. Ankle dorsiflexion/plantarflexion/toe 5/5 bilaterally. PT pulses intact bilaterally. Cap refill in the hallux brisk bilaterally. NEGRITA drain in place with approximately 25 to 50 cc of serosanguineous output Results & Data Results & Data Vital Signs (Past 12 Hours) Vital Signs Temp Pulse Resp BP Pulse Ox O2 Del Method 06/03/24 07:11 36.6 C 90 16 110/68 95 Room Air 06/03/24 04:07 36.6 C 84 16 108/62 95 Room Air 06/03/24 00:07 36.6 C 84 16 102/51 L 95 Room Air PG Care Time/CCT Total # of Minutes Spent Total Time Spent with Patient: Total time spent is greater than 50% in coordination of care (as documented) at patient's floor/unit and/or counseling patient: Coding Level of Care Code 05406 SUB INP/OBS CARE 3/50MIN Diagnoses Diabetes mellitus, type 2 E11.9 GERD (gastroesophageal reflux disease) K21.9 Hypertension I10 BPH with obstruction/lower urinary tract symptoms N40.1; N13.8
[2024-06-03] MEDS: dexAMETHasone 6 MG in SYRINGE 0 ML IV SCH (09:35)
[2024-06-03 14:07] VITALS: TEMP 97.5
[2024-06-04 07:14] VITALS: BP 126/78; PULSE 75; RESP 16; O2SAT 99
--- NOTE | 2024-06-04 09:35 | Discharge Summary ---
Date of Service June 04, 2024 Admission HPI Per Admitting Provider This is a 69-year-old male who presents with chronic persistent back and leg pain after failing course of nonoperative care is here for surgical intervention. Principal Diagnosis Lumbar spondylosis with radiculopathy Discharge Data Allergies Allergy/AdvReac Type Severity Reaction Status Date / Time No Known Allergies Allergy Verified 06/02/24 06:33 Consultations 06/02/24 11:49 Consult Hospitalist Routine Procedures Performed Operation Date: 06/02/24 07:45 Actual Procedures p L5-S1 Decompression and Fusion, Spinal Cord Monitoring(Not Applicable) - Doug Christie DO Ordered Studies 06/02/24 [place] lumbar spine 2-3V Routine Hospital Course (1) 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: Patient with lumbar decompression fusion tolerated this well second orthopedic for postoperative. Post release he progressed appropriate. Marked improvement of his leg pain. Extra-strength testing. NEGRITA drain decreasing. Subsidy discharged home. Discharge orders instructions from the chart for further review. Total Time Total Time Spent Total Time Spent (In Minutes): 20 minutes Discharge Plan Discharge Items Patient Disposition: Home - Self-Care Reason For Visit: Lumbar Disc Herniation Discharge Diagnosis: Lumbar spondylosis with radiculopathy Activity: As commented below Non-emergency contact: Primary Care Provider Call non-emergency contact if: you have any medication questions Follow-up/Referrals: Rabia Mcneil DO [Primary Care Provider] - Diet: Regular Addtl Attending Provider Instructions: ACTIVITY RECOMMENDATIONS: SELF CARE INSTRUCTIONS AFTER THORACIC/LUMBAR FUSIONS 1. You may walk to your tolerance. It is good exercise for your legs and back. Expect some back and intermittent leg aches and pains. 2. You may perform "counter-top" level activities (make a sandwich, apurva with a project, etc.). 3. No bending or lifting of more than 10 pounds or back twisting of any nature (roll like a log when turning in bed). 4. You may ride in a car for 20-30 minutes at a time. No driving until after your first visit with your doctor. 5. Frequent changes of position and restricting sitting to 30 minutes at a time will help limit the amount of back spasms and stiffness you may experience. 6. You may discontinue the use of ambulatory aids (cane, crutches, etc.) once your strength and confidence allow. 7. You may cemetery vault installer the shower and let water strike your incision when you arrive home at least once daily. Do not take a tub bath, sit in a hot tub or go into a swimming pool until after your first recheck in the office. 8. You may resume previous diet. SPECIAL CARE INSTRUCTIONS: VERY IMPORTANT TO READ AND REVIEW A. Your surgical incision has been closed with a cosmetic suture under the skin that will dissolve in about 6 weeks. In 14 days, you can use a pair of clean scissors and cut the suture that is left outside of the skin at the ends of your incision. 1. The small skin tapes can be removed 7 days after surgery if they have not fallen off by that point. 2. You may keep the wound open to air as much as possible to promote healing after post-op day number 5 unless told otherwise by your doctor. 3. If you think the wound looks like it is becoming infected (redness or worsening drainage) and/or you are experiencing fever, chill or worsening back pain and muscle spasms, contact the office so that we may e valuate you as soon as possible. B. Complications are uncommon, but please contact us if you have any signs or symptoms of: 1. wound infection (fever higher than 102.5 degrees F, redness, separation of wound, drainage, or increasing pain from the incision) 2. blood clots in legs (pain, swelling, redness and warmth in legs) 3. urinary tract infection (fever higher than 102.5 degrees F, burning upon urination or increased frequency of urination) 4. nerve problems (inability to walk on your toes or heels, numbness, loss of bowel or bladder control) 5. any other symptoms that concern you C. Please call the office at if you have any concerns or questions about your operation or recovery. D. No smoking! Smoking drastically decreases the chance of a solid fusion. E. Do not take any anti-inflammatory medications (Indocin, Advil, Motrin, Aspirin, Naprosyn, etc.) as these may inhibit the chance of a solid fusion. Tylenol is okay to take for pain. MANAGING PAIN AFTER SPINAL SURGERY 1. Narcotic medication is intended for short-term use and will be provided for surgical pain. Surgical pain usually lasts for a period of 4-6 weeks. Narcotic medication includes Percocet, Vicodin, Darvocet, Tylenol #3 or Lortab. 2. Longer-term pain is more appropriately treated with non-narcotic medication such as Tylenol ES. 3. Muscle spasm is not appropriately treated with narcotics. Muscle relaxers such as Soma, Flexeril or Skelaxin can be used along with Tylenol ES. 4. Remember that we all live with some "aches and pains". This is not unusual or uncommon after an injury or as we get older. a. Back pain is expected and may include muscle spasms for 4 to 6 weeks after surgery. The pain should gradually improve. If the pain worsens for no apparent reason, please contact the office. b. Intermittent leg pain may also be experienced and should not be concerned about unless it worsens for no apparent reason. If so, please contact the office. 5. We will provide appropriate medication within the normal guidelines of their prescribed use. We will also be very cautious and aware of potential abuse and extended duration of patients' medication needs. a. Pain medications are for your comfort and to assist with sleep and rest so that the tissue can heal. They are not provided in order to return to normal activity and should not be used through the day. To do so or worsening pain at night can result from ongoing tissue damage and development of tolerance to the prescribed medicine. 6. Please allow 2-3 days to process refills. Prescriptions will not be mailed but must be picked up at the office. FOLLOW UP VISIT: Keep your scheduled follow-up appointment. Any questions, please call the office at . Pending Studies at Discharge: No Stand-Alone Forms: [facility] [employer], Smoking Cessation Medications and DC Order Prescriptions: New tramadol 50 mg tablet 50 mg PO Q6H PRN (Reason: pain, moderate) Qty: 30 0RF oxycodone 5 mg tablet 5 mg PO Q6H PRN (Reason: pain) Qty: 30 0RF Continued sildenafil 100 mg tablet 100 mg PO DAILY PRN (Reason: sexual activity) Qty: 10 6RF Rx Instructions: Administer 1 hour prior to activity on an empty stomach gabapentin 100 mg capsule 200 mg PO TID Qty: 180 1RF atorvastatin 40 mg Tablet 40 mg PO QPM finasteride 5 mg tablet 5 mg PO QAM lisinopril 10 mg tablet 10 mg PO QAM oxycodone 5 mg tablet 5 - 10 mg PO Q6 PRN (Reason: pain (scale score 7-10)) pantoprazole [Protonix] 20 mg tablet,delayed release (DR/EC) 20 mg PO BID Rybelsus 7 mg tablet 7 mg PO QAM metformin 500 mg tablet extended release 24 hr 1,000 mg PO BID baclofen 10 mg Tablet 10 mg PO BID Qty: 30 0RF Discharge Orders: Discharge Order (Routine); Ordered 06/04/24 Ordered By: Doug Christie Admission Data Admit Date/Time: 06/02/24 09:13 Attending Provider: Doug Christie Admit Provider: Doug Christie Primary Care Provider: Rabia Mcneil. Other Providers: Wily Tineo
[2024-06-04 09:44] LABS: Basophils # (auto) 0.01 K/uL (0.00-0.20); Basophils % (auto) 0.1 %; Eosinophils # (auto) 0.05 K/uL (0.00-0.50); Eosinophils % (auto) 0.7 %; Hematocrit (blood only) 35.5 % (42.0-52.0); Hemoglobin 11.3 g/dl (14.0-18.0); Immature Granulocytes # (auto) 0.04 K/uL (0.01-0.20); Immature Granulocytes % (auto) 0.6 %; Lymphocytes # (auto) 0.94 K/uL (1.20-3.40); Mean Corpuscular Hemoglobin 27.1 pg (25.0-34.0); Mean Corpuscular Hgb Conc 31.8 g/dL (32.0-36.0); Mean Corpuscular Volume 85.1 fL (80.0-100.0); Mean Platelet Volume 10.3 fL (9.4-12.4); Monocytes # (auto) 0.42 K/uL (0.11-0.59); Monocytes % (auto) 5.8 %; Neutrophils # (auto) 5.75 K/uL (1.40-6.50); Neutrophils % (auto) 79.8 %; Platelet Count 266 K/uL (130-400); RDW Coefficient of Variation 17.4 % (11.5-14.5); RDW Standard Deviation 54.3 fL (36.4-46.3); Red Blood Count 4.17 M/uL (4.70-6.10); White Blood Count 7.21 K/ul (4.8-10.8)
[2024-06-04 09:56] LABS: BUN Creatinine Ratio 10.8 (10-20); Creatinine Clr Calc Pharmacy 72.7 ml/min; Potassium 4.2 mmol/L (3.5-5.1)
--- NOTE | 2024-06-04 10:04 | Pharmacy Report ---
Pharmacy Glycemic Short Note 2 - Date of Service June 04, 2024 - Glycemic Short BSG Results (Last 24 hours): 06/03/24 06/03/24 06/03/24 11:20 16:25 20:19 Glucose POC Glucose 95 228 H 241 H 06/04/24 06/04/24 07:55 08:49 Glucose 246 H POC Glucose 132 H OUTPATIENT ANTIDIABETIC REGIMEN: * Rybelsus 7mg QAM (recently increased to 14mg) * metformin ER 1000mg BID * HbA1c 9.1% 05/12/24 ASSESSMENT: 06/04: * Ike received 49 units of insulin yesterday (20 were basal) * Fasting BSG this AM acceptable, continue current basal regimen while on steroids (IV dex day 03/15 today) * Post-prandial BSGs elevated, will tighten carbohydrate coverage slightly. 06/02: * Ike is a 69 year old male admitted status post spinal decompression/fusion with a history of type 2 diabetes mellitus. Pharmacy has been consulted to assist with glycemic management while inpatient. * Preoperative BSG this AM within goal range, it appears that he did not received preoperative steroids. Will add small basal scale if BSGs elevated this evening with diet. Likely will need some additional basal insulin tomorrow as he has dexamethasone 6mg IV daily x3 days ordered. * NovoLog initiated at a weight based stress of 2, plan to tighten tomorrow with IV steroids. PLAN FOR INPATIENT GLYCEMIC CONTROL: * Hold outpatient oral diabetes medications * Basal insulin * Lantus 20 units SQ Daily with IV dexamethasone * Bolus insulin * NovoLog per scale ACHS or Q6hrs while NPO * Goal Range: Low 110 mg/dL - High 140 mg/dL * Correction Factor: 30 mg/dL/unit * Nutritional / Prandial insulin per carb ratio of 1 unit per 7 grams CHO consumed
== END 2024-06-04 11:34 | disposition home or self-care (01) | DRG 402 ==
LOC: ASU 06:03 → PACUINP 09:13 → 3E 12:03
DX: Z87.891 Personal history of nicotine dependence; E11.9 Type 2 diabetes mellitus without complications; Z79.84 Long term (current) use of oral hypoglycemic drugs; N40.1 Benign prostatic hyperplasia with lower urinary tract symptoms; I71.40 Abdominal aortic aneurysm, without rupture, unspecified; M48.061 Spinal stenosis, lumbar region without neurogenic claudication; M47.26 Other spondylosis with radiculopathy, lumbar region; I10 Essential (primary) hypertension; K21.9 Gastro-esophageal reflux disease without esophagitis; E78.5 Hyperlipidemia, unspecified; Z83.3 Family history of diabetes mellitus